=== PATIENT | male | born 1935 | race African-American/Black ===

== ENCOUNTER → 2017-01-06 | Outpatient (CLI) | payer OTHER ==
[~2017-01-06] MED LIST: ASPI-3 PO; CRESTOR10 MG PO; GADOBUTROL 10 MMOL/10 ML VIAL IV ONE; IRBE150T PO; LORA10TA68 PO; MELA3TAB2 PO; METO-269 PO; OMEP20CA9 PO; SAW450CA2 PO; UBID100C26 PO
--- NOTE | 2017-01-06 15:34 | KCIC ---
MRI of the lumbar spine without and with contrast 01/06/2017 CLINICAL HISTORY: Low back pain which radiates down both legs. History of previous lumbar spine surgery in 2004. TECHNIQUE: Unenhanced T1-weighted and T2-weighted sagittal and axial and inversion recovery sagittal images of the lumbar spine were obtained. FINDINGS: Minimal lateral curvature of the lumbar spine is seen convex to the right. Degenerative signal changes are seen involving the L2-3, L3-4, L4-5 and L5-S1 discs. Degenerative signal changes are seen within the marrow surrounding these discs. The conus medullaris is normal in morphology, position, and signal characteristics. Rounded high signal intensity lesions are seen on the T2 weighted images involving the lower pole of the right kidney. These measure 3 to 4 cm in size. They likely represent cysts. At the L1-2 disc space there is a mild generalized disc bulge. Degenerative changes are seen involving the facet joints bilaterally. There is mild to moderate ligamentum flavum hypertrophy bilaterally. Prominence of the posterior epidural fat is seen. These findings when combined result in mild to moderate central spinal canal stenosis. No neural foraminal stenosis is seen. At the L2-3 disc space there is a moderate generalized disc bulge. Degenerative changes are seen involving the facet joints bilaterally. There is moderate ligamentum flavum hypertrophy bilaterally. There is prominence of the posterior epidural fat. These findings when combine result in mild central spinal canal stenosis. Mild to moderate bilateral neural foraminal stenosis is seen. At the L3-4 disc space the patient appears to be post left hemilaminotomy. There is a moderate generalized disc bulge. Degenerative changes are seen involving the facet joints bilaterally. Mild right ligamentum flavum hypertrophy is noted. These findings when combined result in mild central spinal canal stenosis. Mild to moderate left greater than right neural foraminal stenosis is seen. At the L4-5 disc space the patient appears to be status post left hemilaminotomy. There is a mild to moderate generalized disc bulge. Degenerative changes are seen involving the facet joints bilaterally. There is mild right ligamentum flavum hypertrophy. These findings when combine result in mild central spinal canal stenosis. Mild bilateral neural foraminal stenosis is seen. At the L5-S1 disc space there is a minimal generalized disc bulge. Degenerative changes are seen involving the facet joints bilaterally. These findings when combined do not result in significant central spinal canal or neural foraminal stenosis. IMPRESSION: 1. The patient appears to be status post left hemilaminotomy at L3-4 and L4-5. 2. The changes of degenerative disc disease are seen throughout the lumbar spine. These findings result in mild to moderate central spinal canal stenosis at L1-2 and mild central spinal canal stenosis at L2-3, L3-4 and L4-5. Mild to moderate bilateral neural foraminal stenosis is seen at L2-3. Mild to moderate left greater than right neural foraminal stenosis is seen at L3-4. Mild bilateral neural foraminal stenosis is seen at L4-5. Electronically signed by: Tejas Bedoya MD (01/06/2017 3:31 PM)
== END | disposition home or self-care (01) ==
LOC: KCIC MRI 13:00
PROVIDERS: ATTEND Neurological Surgery
DX: M48.06 Spinal stenosis, lumbar region (principal); M51.36 Other intervertebral disc degeneration, lumbar region; Z98.890 Other specified postprocedural states
CPT/HCPCS: 72158; A9585

== ENCOUNTER 2017-11-22 16:32 | Emergency (ER) | payer OTHER ==
[2017-11-22] MEDS: ORPHENADRINE CITRATE 60 MG/2 ML VIAL. IM (16:48)
== END 2017-11-22 17:59 | disposition home or self-care (01) ==
LOC: ER 16:32
DX: S13.4XXA Sprain of ligaments of cervical spine, initial encounter (principal); I10 Essential (primary) hypertension; G89.29 Other chronic pain; E78.00 Pure hypercholesterolemia, unspecified; K21.9 Gastro-esophageal reflux disease without esophagitis; I25.2 Old myocardial infarction; M19.90 Unspecified osteoarthritis, unspecified site; Z88.8 Allergy status to other drugs, medicaments and biological substances; V43.62XA Car passenger injured in collision with other type car in traffic accident, initial encounter; Y93.89 Activity, other specified; Y92.410 Unspecified street and highway as the place of occurrence of the external cause; Y99.8 Other external cause status
CPT/HCPCS: 96372; 99283; J2360

== ENCOUNTER 2020-05-26 12:38 | Emergency (ER) | payer MEDICARE, OTHER ==
[~2020-05-26] VITALS: Ht 167.6 cm; Wt 110.0 kg
[~2020-05-26 12:38] MED LIST changes: +CYCL10TA2 PO; -GADOBUTROL 10 MMOL/10 ML VIAL IV ONE; -MELA3TAB2 PO; +MELA3TAB4 PO; +OMEP20CA16 PO; -OMEP20CA9 PO; -SAW450CA2 PO; +SAW450CA7 PO
--- NOTE | 2020-05-26 12:58 | RAD ---
Examination: PORTABLE CHEST 1V History: Reason: chest pain started this am. / Spl. Instructions: / History: Comparison/Correlation: 08/21/2013 Findings: Portable upright frontal view chest is obtained. Heart size and pulmonary vessels are normal. No infiltrate or pleural effusion. No pneumothorax. Bony structures are unremarkable. Impression: No active disease. Electronically signed by: Vishnu Nagy MD (05/26/2020 12:55 PM) [id number]
[2020-05-26 13:10] LABS: BASO % 1 % (0-3); EOS # 0.1 x10^3/uL (0.0-0.7); EOS % 2 % (0-3); HEMATOCRIT 40.5 % (39.0-53.0); HEMOGLOBIN 13.5 g/dL (13.0-17.5); LYMPH # 1.4 x10^3/uL (1.0-4.8); LYMPH % 28 % (24-48); MEAN CORPUSCULAR HEMOGLOBIN 34 pg (25-35); MEAN CORPUSCULAR HGB CONC 33 g/dL (31-37); MEAN CORPUSCULAR VOLUME 101 fL (79-100); MONO # 0.5 x10^3/uL (0.0-1.1); MONO % 11 % (0-9); NEUT # 2.8 x10^3/uL (1.8-7.7); NEUT % 58 % (31-73); PLATELET COUNT 221 x10^3/uL (140-400); RED BLOOD COUNT 4.02 x10^6/uL (4.30-5.70); RED CELL DISTRIBUTION WIDTH 13.4 % (11.5-14.5); WHITE BLOOD COUNT 4.8 x10^3/uL (4.0-11.0)
[2020-05-26 13:13] LABS: CALCIUM 9.3 mg/dL (8.5-10.1); GFR 86.6; POTASSIUM 3.9 mmol/L (3.5-5.1)
--- NOTE | 2020-05-26 13:14 | PHYS DOC ---
Past Medical History Past Medical History: Arthritis, GERD, High Cholesterol, Hypertension, [place] Past Surgical History: Angioplasty, Other Additional Past Surgical Histo: back surgery 2001 L2,3,4 removed, hernia repair, Smoking Status: Never Smoker Alcohol Use: None Drug Use: None General Adult EDM: Chief Complaint: CHEST PAIN HPI: HPI: Patient is a 84 year old male who presented to ER today for evaluation of subs ternal chest pain started about an hour ago that lasted for 15 minutes. Patient denies any cough or fever, no abdominal pain, no nausea vomiting. Patient also feels dizzy. Patient denies headache. Patient has history of coronary artery disease. He did take 81 mg aspirin this morning. Review of Systems: Review of Systems: Constitutional: Denies fever or chills. [] Eyes: Denies change in visual acuity. [] HENT: Denies nasal congestion or sore throat. [] Respiratory: Denies cough or shortness of breath. [] Cardiovascular: Positive for chest pain, no edema. GI: Denies abdominal pain, nausea, vomiting, bloody stools or diarrhea. [] : Denies dysuria. [] Musculoskeletal: Denies back pain or joint pain. [] Integument: Denies rash. [] Neurologic: Denies headache, focal weakness or sensory changes. [] Endocrine: Denies polyuria or polydipsia. [] Lymphatic: Denies swollen glands. [] Psychiatric: Denies depression or anxiety. [] Heart Score: HEART Score for Chest Pain: HEART Score for Chest Pain Response (Comments) Value History Moderately Suspicious 1 ECG Nonspecific Repolarizatio 1 Age > 65 2 Risk Factors >3 Risk Factors or Hx CAD 2 Troponin < Normal Limit 0 Total 6 Risk Factors: Risk Factors: DM, Current or recent (<one month) smoker, HTN, HLP, family history of CAD, obesity. Risk Scores: Score 0 - 3: 2.5% MACE over next 6 weeks - Discharge Home Score 4 - 6: 20.3% MACE over next 6 weeks - Admit for Clinical Observation Score 7 - 10: 72.7% MACE over next 6 weeks - Early Invasive Strategies Allergies: Allergies: Allergies Coded Allergies Type Severity Reaction Last Updated Verified guaifenesin Allergy 08/21/13 Yes nabumetone Allergy 08/21/13 Yes Physical Exam: PE: Constitutional: Well developed, well nourished, no acute distress, non-toxic appearance. [] HENT: Normocephalic, atraumatic, bilateral external ears normal, oropharynx moist, no oral exudates, nose normal. [] Eyes: PERRLA, EOMI, conjunctiva normal, no discharge. [] Neck: Normal range of motion, no tenderness, supple, no stridor. [] Cardiovascular:Heart rate regular rhythm, no murmur [] Lungs & Thorax: Bilateral breath sounds clear to auscultation [] Abdomen: Bowel sounds normal, soft, no tenderness, no masses, no pulsatile masses. [] Skin: Warm, dry, no erythema, no rash. [] Back: No tenderness, no CVA tenderness. [] Extremities: No tenderness, no cyanosis, no clubbing, ROM intact, no edema. [] Neurologic: Alert and oriented X 3, normal motor function, normal sensory function, no focal deficits noted. [] Psychologic: Affect normal, judgement normal, mood normal. [] Current Patient Data: Vital Signs: Vital Signs Date Time Temp Pulse Resp B/P (MAP) Pulse Ox O2 Delivery O2 Flow Rate FiO2 05/26/20 12:42 97.7 75 18 159/96 (117) 97 Room Air 97.7 EKG: EKG: EKG was done at 1242, heart rate of 85 bpm, sinus rhythm, PVC complex, no ST segment elevation. Radiology/Procedures: Radiology/Procedures: [facility] [address] [place] [address] IMAGING REPORT Signed PATIENT: GURINDER MAHMOODACCOUNT: [id number] : 1935 LOCATION: ER AGE: 84 SEX: M EXAM STATUS: PRE ER ORD. PHYSICIAN: LATASHA CARTER DO REASON: chest pain started this am. PROCEDURE: PORTABLE CHEST 1V Examination: PORTABLE CHEST 1V History: Reason: chest pain started this am. / Spl. Instructions: / History: Comparison/Correlation: 08/21/2013 Findings: Portable upright frontal view chest is obtained. Heart size and pulmonary vessels are normal. No infiltrate or pleural effusion. No pneumothorax. Bony structures are unremarkable. Impression: No active disease. Electronically signed by: Vishnu Mccarty MD (05/26/2020 12:55 PM) [id number] DICTATED and SIGNED BY: VISHNU MCCARTY MD DATE: 05/26/20 7754 Course & Med Decision Making: Course & Med Decision Making Pertinent Labs and Imaging studies reviewed. (See chart for details) Patient EKG and cardiac enzymes did not show any acute problem.. He was no longer have chest pain. Due to his risk factors, this physician recommended that patient is to be admitted to hospital for further evaluation and treatment. Patient was amenable to plan of care. This physician then contacted hospitalist service Dr. Villafana who agreed to admit the patient. Then later patient decided that he did not want to stay in hospital. He signed out against medical advice, his son took him home. Jazlyn Disclaimer: Jazlyn Disclaimer: This electronic medical record was generated, in whole or in part, using a voice recognition dictation system. Departure Departure Impression: Primary Impression: Chest pain Disposition: 07 AMA/ELOPED/LWBS Condition: STABLE Referrals: NATHAN KEBEDE MD (PCP) Additional Instructions: Patient does not wish to proceed with medical care recommended by ( ). Patient given information related to possible complications, up to and including , which could occur as a result of leaving the hospital at this time. Patient verbalizes understanding of risks involved due to leaving against medical advice. Patient has singned AMA form. LATASHA CARTER DO May 26, 2020 13:14
[2020-05-26] MEDS ORDERED: ASPIRIN CHEWABLE 81 MG TABLET. PO ONE (13:15)
[2020-05-26 13:18] LABS: PROTHROMBIN TIME PATIENT 12.8 SEC (11.7-14.0)
[2020-05-26 13:19] LABS: ALBUMIN 3.7 g/dL (3.4-5.0); ALBUMIN/GLOBULIN RATIO 1.1 (1.0-1.7); TOTAL BILIRUBIN 0.2 mg/dL (0.2-1.0); TOTAL PROTEIN 7.2 g/dL (6.4-8.2)
[2020-05-26 14:26] VITALS: BP 187/89
--- NOTE | 2020-05-27 14:07 | EKG ---
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
== END 2020-05-26 14:30 | disposition left against medical advice (07) ==
LOC: ER 12:38
DX: R07.2 Precordial pain (principal); K21.9 Gastro-esophageal reflux disease without esophagitis; E78.00 Pure hypercholesterolemia, unspecified; I10 Essential (primary) hypertension; I25.2 Old myocardial infarction; Z95.5 Presence of coronary angioplasty implant and graft; Z88.8 Allergy status to other drugs, medicaments and biological substances
CPT/HCPCS: 36415; 71045; 80053; 83690; 83735; 83880; 84484; 85025; 85610; 93005; 99285-25

== ENCOUNTER 2020-09-22 07:06 | Emergency (ER) | payer MEDICARE, OTHER ==
[~2020-09-22] VITALS: Ht 175.3 cm; Wt 75.0 kg
[~2020-09-22 07:06] MED LIST changes: +ACET500T68 PO; +ALPR0.5T PO; +ASPI325T8 PO; +METO50TA6 PO; +MULT-445 PO; +POLY17PO29 PO
[2020-09-22 07:07] VITALS: BP 166/74
[2020-09-22 07:57] LABS: BILIRUBIN,URINE SMALL (NEG); CLARITY,URINE TURBID; NITRITE,URINE POSITIVE (NEG); PROTEIN,URINE >=300 mg/dL (NEG-TRACE)
[2020-09-22 08:25] LABS: COLOR,URINE YELLOW
[2020-09-22 08:28] LABS: BACTERIA,URINE MANY /HPF (0-FEW); WBC,URINE TNTC /HPF (0-4)
--- NOTE | 2020-09-22 09:07 | ED.ADGEN ---
Past Medical History Past Medical History: Arthritis, GERD, High Cholesterol, Hypertension, [place] Past Surgical History: Angioplasty, Coronary Bypass Surgery, Other Additional Past Surgical Histo: back surgery 2000 L2,3,4 removed, hernia repair, cabg 06/20 Smoking Status: Never Smoker Alcohol Use: None Drug Use: None General Adult EDM: Chief Complaint: BLOOD IN URINE HPI: HPI: Patient is an 84-year-old male who presents to the emergency room complaining of hematuria. Patient states that he had a double bypass done 3 months ago and a few days after the surgery he started having bladder pain. He went back to the emergency room and at that time it was found that he had a urinary tract infection. He states they told him it was from the catheter. He took antibiotics which seemed to clear it up. At that time he was checked for prostate cancer and bladder issues and had a normal work-up. Today he is concerned about possible prostate cancer again as he has a family history of this. He states that this morning is the first time he has had hematuria. He did not have hematuria the last time he had a UTI. He denies any pain at this time. He is not having any difficulty urinating. He is not on any blood thinners. Review of Systems: Review of Systems: Complete ROS is negative unless otherwise documented in HPI Allergies: Allergies: Allergies Coded Allergies Type Severity Reaction Last Updated Verified clopidogrel Allergy Intermediate Rash 08/08/20 Yes guaifenesin Allergy Unknown 08/03/20 Yes nabumetone Allergy Unknown 08/03/20 Yes Physical Exam: PE: General: Awake, alert, NAD. Well Nourished, well hydrated. Cooperative HEENT: Atraumatic, EOMI, PERRL, airway patent, moist oral mucosa Neck: Supple, trachea midline Respiratory: CTA bilaterally, normal effort, no wheezing/crackles CV: RRR, no murmur, cap refill <2 GI: Soft, nondistended, nontender, no masses MSK: No obvious deformities Skin: Warm, dry, intact Neuro: A&O x3, speech NL, sensory and motor grossly intact, no focal deficits Psych: Normal affect, normal mood, not suicidal or homicidal Current Patient Data: Labs: Laboratory Tests Test 09/22/20 07:17 Urine Collection Type Unknown Urine Color Yellow Urine Clarity Turbid Urine pH 6.0 (<5.0-8.0) Urine Specific [place] 1.020 (1.000-1.030) Urine Protein >=300 mg/dL (NEG-TRACE) Urine Glucose (UA) Negative mg/dL (NEG) Urine Ketones (Stick) Trace mg/dL (NEG) Urine Blood Large (NEG) Urine Nitrite Positive (NEG) Urine Bilirubin Small (NEG) Urine Urobilinogen Dipstick 1.0 mg/dL (0.2 mg/dL) Urine Leukocyte Esterase Large (NEG) Urine RBC 6-10 /HPF (0-2) Urine WBC Tntc /HPF (0-4) Urine Squamous Epithelial Cells Occ /LPF Urine Bacteria Many /HPF (0-FEW) Urine Mucus Mod /LPF Vital Signs: Vital Signs Date Time Temp Pulse Resp B/P (MAP) Pulse Ox O2 Delivery O2 Flow Rate FiO2 09/22/20 07:07 98.1 112 18 166/74 (104) 99 Room Air 98.1 EKG: EKG: [] Heart Score: C/O Chest Pain: N/A Risk Factors: Risk Factors: DM, Current or recent (<one month) smoker, HTN, HLP, family history of CAD, obesity. Risk Scores: Score 0 - 3: 2.5% MACE over next 6 weeks - Discharge Home Score 4 - 6: 20.3% MACE over next 6 weeks - Admit for Clinical Observation Score 7 - 10: 72.7% MACE over next 6 weeks - Early Invasive Strategies Radiology/Procedures: Radiology/Procedures: [] Course & Med Decision Making: Course & Med Decision Making Pertinent Labs and Imaging studies reviewed. (See chart for details) Patient is an 84-year-old male who presents to the emergency room with hematuria. A UA was sent and patient does appear to have a urinary tract infection with nitrite positive's making it most likely to be E. coli. Given that he is a male and he has had a recent infection we will place him on antibiotics for 14 days. Patient does not appear to be septic. Will refer him to urology as he can has concerns about his prostate and he has had 2 bladder infections in the last 3 months. Patient's test results and vitals while in the ED were fully reviewed and discussed with the patient. Patient is stable and at this time does not need admission to the hospital. We have discussed strict return precautions and the importance of following up with their Primary Care Physician. Patient stated understanding and was given an opportunity to ask any questions. Patient is in agreement with plan. Dragon Disclaimer: Dragon Disclaimer: This electronic medical record was generated, in whole or in part, using a voice recognition dictation system. Departure Departure Impression: Primary Impression: Urinary tract infection Disposition: 01 DC HOME SELF CARE/HOMELESS Condition: STABLE Referrals: NATHAN KEBEDE MD (PCP) Patient Instructions: Urinary Tract Infection Additional Instructions: Urology César Mcgee Scripts Cephalexin (CEPHALEXIN) 500 Mg Capsule 1 CAP PO BID for 14 Days, #28 CAP Prov: LENORE CHAVARRIA MD 09/22/20 LENORE CHAVARRIA MD Sep 22, 2020 09:07
[2020-09-22] MEDS ORDERED: CEPH500C PO (09:11)
== END 2020-09-22 09:18 | disposition home or self-care (01) ==
LOC: ER 07:06
DX: N39.0 Urinary tract infection, site not specified (principal); R31.9 Hematuria, unspecified; M19.90 Unspecified osteoarthritis, unspecified site; K21.9 Gastro-esophageal reflux disease without esophagitis; E78.00 Pure hypercholesterolemia, unspecified; I10 Essential (primary) hypertension; I25.2 Old myocardial infarction; Z90.89 Acquired absence of other organs; Z98.890 Other specified postprocedural states; Z88.8 Allergy status to other drugs, medicaments and biological substances
CPT/HCPCS: 81001; 99283

== ENCOUNTER 2020-11-26 05:56 | Emergency (ER) | payer MEDICARE, OTHER ==
[~2020-11-26] VITALS: Ht 172.7 cm; Wt 69.5 kg
[~2020-11-26 05:56] MED LIST changes: +CEPH500C PO
[2020-11-26 06:23] VITALS: BP 197/98
[2020-11-26 07:24] LABS: BILIRUBIN,URINE NEGATIVE (NEG); CLARITY,URINE CLEAR; COLOR,URINE YELLOW; NITRITE,URINE NEGATIVE (NEG); PROTEIN,URINE NEGATIVE (NEG-TRACE); UROBILINOGEN,URINE 0.2 mg/dL (0.2 mg/dL)
[2020-11-26 07:35] LABS: BACTERIA,URINE 0 /HPF (0-FEW); RBC,URINE OCC /HPF (0-2); WBC,URINE 0 /HPF (0-4)
--- NOTE | 2020-11-26 08:19 | PHYS DOC ---
Past Medical History Past Medical History: Arthritis, GERD, High Cholesterol, Hypertension, [place], Other Additional Past Medical Histor: BPH Past Surgical History: Angioplasty, Coronary Bypass Surgery, Other Additional Past Surgical Histo: back surgery 2000 L2,3,4 removed, hernia repair , cabg 06/20 Smoking Status: Never Smoker Alcohol Use: None Drug Use: None General Adult EDM: Chief Complaint: URINARY RETENTION HPI: HPI: Patient is a 84 year old male who presented to ER due to not able to urinate since 1 AM this morning. Patient had denies any chest pain, no abdominal pain, no nausea vomiting. Patient denies any fever, no back pain. Patient denies any bowel incontinence. Patient said he has a lot of pressure in his bladder. Review of Systems: Review of Systems: Constitutional: Denies fever or chills. [] Eyes: Denies change in visual acuity. [] HENT: Denies nasal congestion or sore throat. [] Respiratory: Denies cough or shortness of breath. [] Cardiovascular: Denies chest pain or edema. [] GI: Denies abdominal pain, nausea, vomiting, bloody stools or diarrhea. [] : Denies dysuria. Positive for not able to urinate since 1 AM this morning. Musculoskeletal: Denies back pain or joint pain. [] Integument: Denies rash. [] Neurologic: Denies headache, focal weakness or sensory changes. [] Endocrine: Denies polyuria or polydipsia. [] Lymphatic: Denies swollen glands. [] Psychiatric: Denies depression or anxiety. [] Heart Score: C/O Chest Pain: N/A Risk Factors: Risk Factors: DM, Current or recent (<one month) smoker, HTN, HLP, family history of CAD, obesity. Risk Scores: Score 0 - 3: 2.5% MACE over next 6 weeks - Discharge Home Score 4 - 6: 20.3% MACE over next 6 weeks - Admit for Clinical Observation Score 7 - 10: 72.7% MACE over next 6 weeks - Early Invasive Strategies Allergies: Allergies: Allergies Coded Allergies Type Severity Reaction Last Updated Verified FRANCISCO Inhibitors Allergy Intermediate 11/26/20 Yes atorvastatin Allergy Intermediate GI BLEED 11/26/20 Yes clopidogrel Allergy Intermediate Rash 08/08/20 Yes fenofibrate Allergy Intermediate RASH 11/26/20 Yes guaifenesin Allergy Intermediate 11/26/20 Yes nabumetone Allergy Intermediate 11/26/20 Yes pravastatin Allergy Intermediate RASH 11/26/20 Yes ticagrelor Allergy Intermediate 11/26/20 Yes Physical Exam: PE: Constitutional: Well developed, well nourished, no acute distress, non-toxic appearance. [] HENT: Normocephalic, atraumatic, bilateral external ears normal, oropharynx moist, no oral exudates, nose normal. [] Eyes: PERRLA, EOMI, conjunctiva normal, no discharge. [] Neck: Normal range of motion, no tenderness, supple, no stridor. [] Cardiovascular:Heart rate regular rhythm, no murmur [] Lungs & Thorax: Bilateral breath sounds clear to auscultation [] Abdomen: Bowel sounds normal, soft, There is suprabupic tenderness to palpation, no masses, no pulsatile masses. [] Skin: Warm, dry, no erythema, no rash. [] Back: No tenderness, no CVA tenderness. [] Extremities: No tenderness, no cyanosis, no clubbing, ROM intact, no edema. [] Neurologic: Alert and oriented X 3, normal motor function, normal sensory function, no focal deficits noted. [] Psychologic: Affect normal, judgement normal, mood normal. [] Current Patient Data: Labs: Laboratory Tests Test 11/26/20 06:38 Urine Collection Type U cath Urine Color Yellow Urine Clarity Clear Urine pH 7.0 (<5.0-8.0) Urine Specific [place] 1.010 (1.000-1.030) Urine Protein Negative mg/dL (NEG-TRACE) Urine Glucose (UA) Negative mg/dL (NEG) Urine Ketones (Stick) Negative mg/dL (NEG) Urine Blood Negative (NEG) Urine Nitrite Negative (NEG) Urine Bilirubin Negative (NEG) Urine Urobilinogen Dipstick 0.2 mg/dL (0.2 mg/dL) Urine Leukocyte Esterase Negative (NEG) Urine RBC Occ /HPF (0-2) Urine WBC 0 /HPF (0-4) Urine Squamous Epithelial Cells Occ /LPF Urine Bacteria 0 /HPF (0-FEW) Vital Signs: Vital Signs Date Time Temp Pulse Resp B/P (MAP) Pulse Ox O2 Delivery O2 Flow Rate FiO2 11/26/20 06:23 96.8 98 28 197/98 (131) 100 Room Air 96.8 EKG: EKG: [] Radiology/Procedures: Radiology/Procedures: [] Course & Med Decision Making: Course & Med Decision Making Pertinent Labs and Imaging studies reviewed. (See chart for details) Patient is an 84-year-old male who presented to ER due to acute urinary retention. A Jo catheter was placed, there was 700 cc of urine collected. Patient felt much better. Patient has a urologist already, Dr. Montez. He Will be discharged home with a leg bag catheter. He will need to follow-up with his urologist this week for reevaluation. Patient is amenable to plan of care. Dragon Disclaimer: Dragon Disclaimer: This electronic medical record was generated, in whole or in part, using a voice recognition dictation system. Departure Departure Impression: Primary Impression: Acute urinary retention Disposition: 01 HOME / SELF CARE / HOMELESS Condition: IMPROVED Referrals: NATHAN KEBEDE MD (PCP) Please call your urologist for follow up this week or PLEASE CALL [facility] UROLOGY DEPARTMENT FOR FOLLOW UP THIS WEEK. The phone number is [phone] Patient Instructions: Urinary Retention, Acute, Male Additional Instructions: Thank you for visiting our Emergency Department. We appreciate you trusting us with your care. If any additional problems come up don't hesitate to return to visit us. Please follow up with your primary care provider so they can plan additional care if needed and know about the problem that you had. If symptoms worsen come back to the Emergency Department. Any concerning symptoms that start such as chest pain, shortness of air, weakness or numbness on one side of the body, running high fevers or any other concerning symptoms return to the ER. LATASHA CARTER DO November 26, 2020 08:19
== END 2020-11-26 09:35 | disposition home or self-care (01) ==
LOC: ER 05:56
DX: N40.1 Benign prostatic hyperplasia with lower urinary tract symptoms (principal); R33.8 Other retention of urine; K21.9 Gastro-esophageal reflux disease without esophagitis; E78.00 Pure hypercholesterolemia, unspecified; I10 Essential (primary) hypertension; I25.2 Old myocardial infarction; Z95.1 Presence of aortocoronary bypass graft; Z95.5 Presence of coronary angioplasty implant and graft; Z98.890 Other specified postprocedural states; Z88.8 Allergy status to other drugs, medicaments and biological substances
CPT/HCPCS: 51701; 81001; 99284

== ENCOUNTER 2020-11-27 21:07 | Emergency (ER) | payer MEDICARE ==
[~2020-11-27] VITALS: Ht 172.7 cm; Wt 69.5 kg
--- NOTE | 2020-11-27 21:28 | PHYS DOC ---
Past Medical History Past Medical History: Arthritis, GERD, High Cholesterol, Hypertension, [place], Other Additional Past Medical Histor: BPH Past Surgical History: Angioplasty, Coronary Bypass Surgery, Other Additional Past Surgical Histo: back surgery 2000 L2,3,4 removed, hernia repair , cabg 06/20 Smoking Status: Never Smoker Alcohol Use: None Drug Use: None General Adult EDM: Chief Complaint: URINE CATHETER PROBLEM HPI: HPI: Patient is a 85-year-old male presenting for catheter problems. Was seen here at our facility yesterday for urinary retention, no acute disease but Jo catheter was placed with greater than 1 L urine output which significantly relieved his symptoms. He was advised to keep Jo catheter in place and have close follow-up with outpatient urologist that he is previously established with for continued management. Nonetheless, patient reports intermittent suprapubic pain since ER departure yesterday. Reports at times urine drains without him having to initiate or bear down. He reports at times when he feels like he has to urinate, when trying to bear down and expel urine he reports suprapubic pain and spasms. Reports he has had steady urinary output with no concern for obstruction, he has not had urine leaking around Jo catheter, no fever, no ot her concerning signs or symptoms of infectious disease. He contacted his primary physician and urologist today and is pending outpatient follow-up within upcoming 7 days Review of Systems: Review of Systems: Fourteen body systems of review of systems have been reviewed. See HPI for pertinent positives and negative responses, other decker all other systems are negative, non-pertinent or non-contributory Heart Score: C/O Chest Pain: No Risk Factors: Risk Factors: DM, Current or recent (<one month) smoker, HTN, HLP, family history of CAD, obesity. Risk Scores: Score 0 - 3: 2.5% MACE over next 6 weeks - Discharge Home Score 4 - 6: 20.3% MACE over next 6 weeks - Admit for Clinical Observation Score 7 - 10: 72.7% MACE over next 6 weeks - Early Invasive Strategies Allergies: Allergies: Allergies Coded Allergies Type Severity Reaction Last Updated Verified FRANCISCO Inhibitors Allergy Intermediate 11/26/20 Yes atorvastatin Allergy Intermediate GI BLEED 11/26/20 Yes clopidogrel Allergy Intermediate Rash 08/08/20 Yes fenofibrate Allergy Intermediate RASH 11/26/20 Yes guaifenesin Allergy Intermediate 11/26/20 Yes nabumetone Allergy Intermediate 11/26/20 Yes pravastatin Allergy Intermediate RASH 11/26/20 Yes ticagrelor Allergy Intermediate 11/26/20 Yes Physical Exam: PE: Constitutional: Well developed, well nourished, no acute distress, non-toxic appearance. HENT: Normocephalic, atraumatic, bilateral external ears normal, oropharynx moist, no oral exudates, nose normal. Eyes: PERRLA, EOMI, conjunctiva normal, no discharge. Neck: Normal range of motion, no tenderness, supple, no stridor. Cardiovascular: Heart rate regular, sinus rhythm, no murmurs rubs or gallops Lungs & Thorax: Bilateral breath sounds clear to auscultation Abdomen: Bowel sounds normal, soft, no tenderness, no masses, no pulsatile masses. Nonsurgical abdomen, no peritoneal signs : Testicles bilaterally descended and unremarkable with no tenderness or palpable abnormalities on exam, penis uncircumcised with Jo catheter in appropriate position and strapped to leg without concern for dislodgment/trauma/malalignment/misplacement etc. Bladder scan performed with 17 mls urine present in bladder Skin: Warm, dry, no erythema, no rash. Back: No tenderness, no CVA tenderness. Extremities: No tenderness, no cyanosis, no clubbing, ROM intact, no edema. Neurologic: Alert and oriented X 3, grossly normal motor & sensory function, no focal deficits noted. Psychologic: Affect normal, judgement normal, mood normal. EKG: EKG: [] Radiology/Procedures: Radiology/Procedures: [] Course & Med Decision Making: Course & Med Decision Making Vital signs stable, HPI and physical exam nonconcerning for any emergent or surgical issues. Patient has well-appearing and well-placed Jo catheter that is draining adequately without residual/retention or concern for infection I reviewed ER visit with patient and family member at bedside. Patient asymptomatic at present on evaluation. He has outpatient follow-up scheduled with primary care physician and urologist which I feel is appropriate. Joint decision to defer any further diagnostic work-up in ER setting Patient has good access to outpatient care. Reports he will call them first thing in the morning when they open to review subsequent ER visit this evening. Patient and family member educated extensively on strict return precautions that should prompt immediate medical return for evaluation. Jazlyn Disclaimer: Jazlyn Disclaimer: This electronic medical record was generated, in whole or in part, using a voice recognition dictation system. Departure Departure Impression: Primary Impression: Painful bladder spasm Disposition: HOME / SELF CARE / HOMELESS Condition: STABLE Referrals: NATHAN KEBEDE MD (PCP) Patient Instructions: Jo Catheter Care, Adult Additional Instructions: As discussed, your vital signs, physical examination and review of Jo catheter placement and bladder function was all grossly unremarkable. I reviewed work-up performed yesterday our facility that was nonconcerning for any acute infection. I discussed little utility in further diagnostic work-up in ER setting. At present, there is no concerning signs or symptoms that indicate active disease. I believe you are still getting used to foreign body that is Jo catheter being placed. As recommended, I advise you ensure close outpatient follow-up with your primary care physician and urologist as previously scheduled today. It would be best if you can be seen within upcoming 7 days time for ER visit review and needs for next step in care. If any concerning signs or symptoms present prior to outpatient follow-up please do not hesitate to come back for repeat evaluation. It was a pleasure to take care of you and I wish you the best going forward RICKY GAMBOA DO November 27, 2020 21:28
[2020-11-27 22:20] VITALS: BP 137/62
== END 2020-11-27 22:25 | disposition home or self-care (01) ==
LOC: ER 21:07
DX: N32.89 Other specified disorders of bladder (principal); R33.9 Retention of urine, unspecified; R10.30 Lower abdominal pain, unspecified; M19.90 Unspecified osteoarthritis, unspecified site; K21.9 Gastro-esophageal reflux disease without esophagitis; E78.00 Pure hypercholesterolemia, unspecified; I10 Essential (primary) hypertension; I25.2 Old myocardial infarction; Z95.1 Presence of aortocoronary bypass graft; Z98.61 Coronary angioplasty status; Z88.8 Allergy status to other drugs, medicaments and biological substances
CPT/HCPCS: 99284

== ENCOUNTER 2020-12-02 09:01 | Emergency (ER) | payer MEDICARE ==
[~2020-12-02] VITALS: Ht 165.1 cm; Wt 68.0 kg
[2020-12-02 09:57] LABS: BILIRUBIN,URINE NEGATIVE (NEG); CLARITY,URINE CLOUDY; COLOR,URINE YELLOW; NITRITE,URINE POSITIVE (NEG); PH,URINE 6.5 (<5.0-8.0); PROTEIN,URINE NEGATIVE (NEG-TRACE); UROBILINOGEN,URINE 0.2 mg/dL (0.2 mg/dL)
[2020-12-02 10:09] LABS: BACTERIA,URINE MANY /HPF (0-FEW); WBC,URINE >40 /HPF (0-4)
--- NOTE | 2020-12-02 10:49 | ED.ADGEN ---
Past Medical History Past Medical History: Arthritis, GERD, High Cholesterol, Hypertension, [place], Other Additional Past Medical Histor: BPH, URINARY RETENTION Past Surgical History: Angioplasty, Coronary Bypass Surgery, Other Additional Past Surgical Histo: back surgery 2000 L2,3,4 removed, hernia repair, cabg 06/20 Smoking Status: Never Smoker Alcohol Use: None Drug Use: None General Adult EDM: Chief Complaint: URINE CATHETER PROBLEM HPI: HPI: Patient is an 85-year-old male who presents to the emergency room complaining of bladder pressure and difficulty with his urinary catheter. He had a catheter placed here in the emergency room about a week ago due to urinary retention. He states that he was not have any problems until last night. He states he has had some drainage around the catheter. He is also having this bladder pressure. He denies any fever, chills, sweats, nausea, vomiting. He is requesting an EKG as he had chest pain several days ago which is now resolved. He also fell out of bed and hit his head hard on the floor about 7 days prior to arrival. He continues to have headaches. He denies any numbness or weakness. He denies any difficulty with gait. He denies any confusion. He states the headaches are dull and on the right side of the head where he hit his head. Review of Systems: Review of Systems: Complete ROS is negative unless otherwise documented in HPI Allergies: Allergies: Allergies Coded Allergies Type Severity Reaction Last Updated Verified FRANCISCO Inhibitors Allergy Intermediate 11/26/20 Yes atorvastatin Allergy Intermediate GI BLEED 11/26/20 Yes clopidogrel Allergy Intermediate Rash 08/08/20 Yes fenofibrate Allergy Intermediate RASH 11/26/20 Yes guaifenesin Allergy Intermediate 11/26/20 Yes nabumetone Allergy Intermediate 11/26/20 Yes pravastatin Allergy Intermediate RASH 11/26/20 Yes ticagrelor Allergy Intermediate 11/26/20 Yes Physical Exam: PE: General: Awake, alert, NAD. Well Nourished, well hydrated. Cooperative HEENT: Small hematoma to the right moravian, EOMI, PERRL, airway patent, moist oral mucosa Neck: Supple, trachea midline Respiratory: CTA bilaterally, normal effort, no wheezing/crackles CV: RRR, no murmur, cap refill <2 GI: Soft, nondistended, nontender, no masses MSK: No obvious deformities Skin: Warm, dry, intact Neuro: A&O x3, speech NL, sensory and motor grossly intact, no focal deficits Psych: Normal affect, normal mood, not suicidal or homicidal Current Patient Data: Labs: Laboratory Tests Test 12/02/20 09:40 Urine Collection Type Unknown Urine Color Yellow Urine Clarity Cloudy Urine pH 6.5 (<5.0-8.0) Urine Specific [place] 1.010 (1.000-1.030) Urine Protein Negative mg/dL (NEG-TRACE) Urine Glucose (UA) Negative mg/dL (NEG) Urine Ketones (Stick) Negative mg/dL (NEG) Urine Blood Large (NEG) Urine Nitrite Positive (NEG) Urine Bilirubin Negative (NEG) Urine Urobilinogen Dipstick 0.2 mg/dL (0.2 mg/dL) Urine Leukocyte Esterase Large (NEG) Urine RBC 11-20 /HPF (0-2) Urine WBC >40 /HPF (0-4) Urine Squamous Epithelial Cells Few /LPF Urine Bacteria Many /HPF (0-FEW) Urine Mucus Slight /LPF Vital Signs: Vital Signs Date Time Temp Pulse Resp B/P (MAP) Pulse Ox O2 Delivery O2 Flow Rate FiO2 12/02/20 09:15 98.2 78 18 149/70 (96) 98 Room Air 98.2 EKG: EKG: [] Heart Score: C/O Chest Pain: N/A Risk Factors: Risk Factors: DM, Current or recent (<one month) smoker, HTN, HLP, family history of CAD, obesity. Risk Scores: Score 0 - 3: 2.5% MACE over next 6 weeks - Discharge Home Score 4 - 6: 20.3% MACE over next 6 weeks - Admit for Clinical Observation Score 7 - 10: 72.7% MACE over next 6 weeks - Early Invasive Strategies Radiology/Procedures: Radiology/Procedures: [] Course & Med Decision Making: Course & Med Decision Making Pertinent Labs and Imaging studies reviewed. (See chart for details) Patient 85-year-old male who presents to the emergency room with bladder pain, Jo issues, headache. For patient's closed head injury as CT will be done to rule out a subacute bleed. Patient is neurologically intact. He does have a small hematoma to the right side of his head. Jo was replaced with good output. UA shows UTI. This is likely the cause of his bladder pain and clogged Jo. He has a follow-up appointment with his primary care doctor in 3 days and a urology appointment on Thursday. He will be placed on antibiotics. Patient would like to go home. Patient's test results and vitals while in the ED were fully reviewed and discussed with the patient. Patient is stable and at this time does not need admission to the hospital. We have discussed strict return precautions and the importance of following up with their Primary Care Phys ician. Patient stated understanding and was given an opportunity to ask any questions. Patient is in agreement with plan. Dragon Disclaimer: Dragon Disclaimer: This electronic medical record was generated, in whole or in part, using a voice recognition dictation system. Departure Departure Impression: Primary Impression: UTI (urinary tract infection) Additional Impressions: Jo catheter problem Closed head injury Disposition: HOME / SELF CARE / HOMELESS Condition: STABLE Referrals: NATHAN KEBEDE MD (PCP) Patient Instructions: Jo Catheter Care, Adult, Urinary Tract Infection Scripts Cephalexin (CEPHALEXIN) 500 Mg Capsule 1 CAP PO BID for 10 Days, #20 CAP Prov: LENORE CHAVARRIA MD 12/02/20 Problem Qualifiers LENORE CHAVARRIA MD December 02, 2020 10:49
[2020-12-02] MEDS ORDERED: CEPH500C PO (11:03)
--- NOTE | 2020-12-02 11:41 | RAD ---
PQRS Compliance Statement: One or more of the following individualized dose reduction techniques were utilized for this examinat ion: 1. Automated exposure control 2. Adjustment of the mA and/or kV according to patient size 3. Use of iterative reconstruction technique CT HEAD WITHOUT CONTRAST History: Reason: chi 4 days ago / Comparison: None. Technique: Axial images are obtained of the head from the skull base through the vertex without IV co ntrast. Findings: No mass-effect, midline shift, extra-axial fluid collection, hemorrhage, or obvious acute infarction is identified. Basilar cisterns are patent. The ventricles and sulci are prominent, consistent with age-related cerebral atrophy. There is mild p eriventricular white matter hypoattenuation. This is a nonspecific finding but is commonly due to ch ronic small vessel ischemic disease. Bone windows demonstrate no acute calvarial abnormality. The visualized paranasal sinuses are clear. Mastoid air cells are well aerated. IMPRESSION: 1. No acute intracranial abnormality. 2. Age-related cerebral atrophy and mild periventricular white matter changes probably due to chroni c small vessel ischemic disease. Electronically signed by: Juanito Rowe MD (12/02/2020 11:39 AM) [id number]
[2020-12-02 11:58] VITALS: BP 170/77
[2020-12-02] MEDS ORDERED: LEVO500T8 PO (12:31)
--- NOTE | 2020-12-02 19:38 | EKG ---
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
== END 2020-12-02 12:42 | disposition home or self-care (01) ==
LOC: ER 09:01
DX: S09.90XA Unspecified injury of head, initial encounter (principal); N39.0 Urinary tract infection, site not specified; N40.1 Benign prostatic hyperplasia with lower urinary tract symptoms; R33.8 Other retention of urine; K21.9 Gastro-esophageal reflux disease without esophagitis; E78.00 Pure hypercholesterolemia, unspecified; I10 Essential (primary) hypertension; I25.2 Old myocardial infarction; Z95.5 Presence of coronary angioplasty implant and graft; Z95.1 Presence of aortocoronary bypass graft; Z88.8 Allergy status to other drugs, medicaments and biological substances; W06.XXXA Fall from bed, initial encounter; Y93.89 Activity, other specified; Y92.89 Other specified places as the place of occurrence of the external cause; Y99.8 Other external cause status
CPT/HCPCS: 70450; 81001; 93005; 99285-25

== ENCOUNTER 2020-12-02 16:18 | Emergency (ER) | payer MEDICARE ==
[~2020-12-02] VITALS: Ht 172.7 cm; Wt 68.1 kg
[~2020-12-02 16:18] MED LIST changes: +LEVO500T8 PO
--- NOTE | 2020-12-02 17:42 | PHYS DOC ---
Past Medical History Past Medical History: Arthritis, GERD, High Cholesterol, Hypertension, [place], Other Additional Past Medical Histor: BPH, URINARY RETENTION Past Surgical History: Angioplasty, Coronary Bypass Surgery, Other Additional Past Surgical Histo: back surgery 2000 L2,3,4 removed, hernia repair, cabg 06/20 Smoking Status: Never Smoker Alcohol Use: None Drug Use: None General Adult EDM: Chief Complaint: BLOOD IN URINE HPI: HPI: Patient is a 85 year old male who presents with was here this morning with a very tract infection and needing a catheter placed for urinary retention. A leg bag catheter was placed and patient has an appointment in 2 days with urology. Patient is back this afternoon due to stating he does not think the bag is draining properly. Patient denies any other discomfort. Review of Systems: Review of Systems: Constitutional: Denies fever or chills. [] Eyes: Denies change in visual acuity. [] HENT: Denies nasal congestion or sore throat. [] Respiratory: Denies cough or shortness of breath. [] Cardiovascular: Denies chest pain or edema. [] GI: Denies abdominal pain, nausea, vomiting, bloody stools or diarrhea. [] : Denies dysuria. + Urinary bag drainage problem [] Musculoskeletal: Denies back pain or joint pain. [] Integument: Denies rash. [] Neurologic: Denies headache, focal weakness or sensory changes. [] Endocrine: Denies polyuria or polydipsia. [] Lymphatic: Denies swollen glands. [] Psychiatric: Denies depression or anxiety. [] Heart Score: C/O Chest Pain: No Risk Factors: Risk Factors: DM, Current or recent (<one month) smoker, HTN, HLP, family history of CAD, obesity. Risk Scores: Score 0 - 3: 2.5% MACE over next 6 weeks - Discharge Home Score 4 - 6: 20.3% MACE over next 6 weeks - Admit for Clinical Observation Score 7 - 10: 72.7% MACE over next 6 weeks - Early Invasive Strategies Allergies: Allergies: Allergies Coded Allergies Type Severity Reaction Last Updated Verified FRANCISCO Inhibitors Allergy Intermediate 11/26/20 Yes atorvastatin Allergy Intermediate GI BLEED 11/26/20 Yes clopidogrel Allergy Intermediate Rash 08/08/20 Yes fenofibrate Allergy Intermediate RASH 11/26/20 Yes guaifenesin Allergy Intermediate 11/26/20 Yes nabumetone Allergy Intermediate 11/26/20 Yes pravastatin Allergy Intermediate RASH 11/26/20 Yes ticagrelor Allergy Intermediate 11/26/20 Yes Physical Exam: PE: Constitutional: Well developed, well nourished, no acute distress, non-toxic appearance. [] HENT: Normocephalic, atraumatic, bilateral external ears normal, oropharynx moist, no oral exudates, nose normal. [] Eyes: PERRLA, EOMI, conjunctiva normal, no discharge. [] Neck: Normal range of motion, no tenderness, supple, no stridor. [] Cardiovascular:Heart rate regular rhythm, no murmur [] Lungs & Thorax: Bilateral breath sounds clear to auscultation [] Abdomen: Bowel sounds normal, soft, no tenderness, no masses, no pulsatile masses. [] Skin: Warm, dry, no erythema, no rash. [] Back: No tenderness, no CVA tenderness. [] Extremities: No tenderness, no cyanosis, no clubbing, ROM intact, no edema. [] Neurologic: Alert and oriented X 3, normal motor function, normal sensory function, no focal deficits noted. [] Psychologic: Affect normal, judgement normal, mood normal. Normal physical exam [] Current Patient Data: Vital Signs: Vital Signs Date Time Temp Pulse Resp B/P (MAP) Pulse Ox O2 Delivery O2 Flow Rate FiO2 12/02/20 17:00 98.7 71 16 145/67 (93) 99 Room Air 98.7 EKG: EKG: [] Radiology/Procedures: Radiology/Procedures: [] Course & Med Decision Making: Course & Med Decision Making Pertinent Labs and Imaging studies reviewed. (See chart for details) See HPI. Alert and oriented x4. Ambulatory with a steady gait. Urinary catheter is flushed 2 different times and it is draining very well. Patient does have urine that is draining into the tube down into the bag. Seems that the bag is not opening for the urine to go into. Urinary catheter bag is chelsie nged and now working. Patient is discharged home. [] Dragon Disclaimer: Jazlyn Disclaimer: This electronic medical record was generated, in whole or in part, using a voice recognition dictation system. Departure Departure Impression: Primary Impression: Urinary catheter dysfunction Qualified Codes: T83.018A - Breakdown (mechanical) of other urinary catheter, initial encounter Disposition: HOME / SELF CARE / HOMELESS Condition: STABLE Referrals: NATHAN KEBEDE MD (PCP) Patient Instructions: Indwelling Urinary Catheter Care-Brief Additional Instructions: Follow-up with your urologist as scheduled. Drink plenty of fluids. Continue taking all medications as they are prescribed. MIGUEL A BARRAZA [employer] PORTAL DEVELOPER December 02, 2020 17:42
[2020-12-02 17:49] VITALS: BP 167/74
== END 2020-12-02 17:58 | disposition home or self-care (01) ==
LOC: ER 16:18
DX: T83.018A Breakdown (mechanical) of other urinary catheter, initial encounter (principal); M19.90 Unspecified osteoarthritis, unspecified site; K21.9 Gastro-esophageal reflux disease without esophagitis; E78.00 Pure hypercholesterolemia, unspecified; I10 Essential (primary) hypertension; I25.2 Old myocardial infarction; Z95.1 Presence of aortocoronary bypass graft; Z98.61 Coronary angioplasty status; Z88.8 Allergy status to other drugs, medicaments and biological substances
CPT/HCPCS: 99281

== ENCOUNTER 2021-05-31 16:37 | Inpatient (IN) | payer MEDICARE, OTHER ==
[~2021-05-31] VITALS: Ht 175.3 cm; Wt 71.1 kg
[~2021-05-31 16:37] MED LIST changes: +ASPI-886 PO; +CHOL5000 PO; +CITA20TA6 PO; +CYCL10TA19 PO; -CYCL10TA2 PO; +DICL150D9 TP; +DUTA0.5C PO; +FLUT9.9S NS; +LATA7.5D OU; -LEVO500T8 PO; +LEVO500T9 PO; +PANT40TA77 PO; +PEG15DRO4 EACHEYE; +ROSU40TA22 PO; +SENN1TAB99 PO; +SIME80TA14 PO; +TAMS0.4C97 PO
[2021-05-31] MEDS ORDERED: ONDANSETRON PF 4 MG/2 ML VIAL. IVP ONE ×2 (17:00→18:45)
[2021-05-31] MEDS ORDERED: MORPHINE SULFATE 10 MG/ML VIAL. IVP ONE (17:00)
[2021-05-31 17:39] LABS: BASO % 0 % (0-3); EOS % 0 % (0-3); HEMATOCRIT 42.5 % (39.0-53.0); HEMOGLOBIN 14.3 g/dL (13.0-17.5); LYMPH # 0.3 x10^3/uL (1.0-4.8); LYMPH % 3 % (24-48); MEAN CORPUSCULAR HEMOGLOBIN 34 pg (25-35); MEAN CORPUSCULAR HGB CONC 34 g/dL (31-37); MEAN CORPUSCULAR VOLUME 101 fL (79-100); MONO # 0.2 x10^3/uL (0.0-1.1); MONO % 2 % (0-9); NEUT # 11.1 x10^3/uL (1.8-7.7); NEUT % 95 % (31-73); PLATELET COUNT 278 x10^3/uL (140-400); RED BLOOD COUNT 4.22 x10^6/uL (4.30-5.70); RED CELL DISTRIBUTION WIDTH 14.9 % (11.5-14.5); WHITE BLOOD COUNT 11.7 x10^3/uL (4.0-11.0)
[2021-05-31] MEDS ORDERED: IOHEXOL 300 MG/ML 100ML VIAL. IV ONE (17:45)
[2021-05-31] MEDS ORDERED: CONTRAST GIVEN. MC PRN (17:45)
[2021-05-31 17:50] LABS: CALCIUM 9.8 mg/dL (8.5-10.1); CREATININE 1.2 mg/dL (0.7-1.3); POTASSIUM 4.5 mmol/L (3.5-5.1)
[2021-05-31 17:57] LABS: ALBUMIN 4.4 g/dL (3.4-5.0); ALBUMIN/GLOBULIN RATIO 1.3 (1.0-1.7); TOTAL BILIRUBIN 0.5 mg/dL (0.2-1.0); TOTAL PROTEIN 7.9 g/dL (6.4-8.2)
--- NOTE | 2021-05-31 18:02 | PHYS DOC ---
Past Medical History Past Medical History: Arthritis, GERD, High Cholesterol, Hypertension, [place], Other Additional Past Medical Histor: BPH, URINARY RETENTION (LOLY REYNOLDS MD) Past Surgical History: Other Additional Past Surgical Histo: CABG (LOLY REYNOLDS MD) Smoking Status: Former Smoker Alcohol Use: None Drug Use: None (LOLY REYNOLDS MD) General Adult EDM: Chief Complaint: ABDOMINAL PAIN HPI: HPI: Patient is a 85 year old male with history of CAD, HTN, HLD, GERD, previous bowel obstruction in September 2020 who presents with worsening abdominal pain. Patient has had intermittent abdominal pain since his CABG in June 2020. He has had extensive work-up including EGD, colonoscopy, GI, and surgery consult ations. He did appear to have a small bowel obstruction in November of this year of unclear etiology, he is he does not have any history of hernia or previous abdominal surgeries. For the past 2-3 days has had increasing periumbilical pain. Constant. Worse with food intake. Does not radiate. Associated with nausea and an urge to burp constantly. On arrival had an episode of large yellow-colored emesis. No diarrhea, hematochezia, melena. No dysuria, urgency, or frequency. (LOLY REYNOLDS MD) Review of Systems: Review of Systems: Constitutional: Denies fever or chills. [] Eyes: Denies change in visual acuity. [] HENT: Denies nasal congestion or sore throat. [] Respiratory: Denies cough or shortness of breath. [] Cardiovascular: Denies chest pain or edema. [] GI: Reports abdominal pain, nausea, vomiting : Denies dysuria. [] Musculoskeletal: Denies back pain or joint pain. [] Integument: Denies rash. [] Neurologic: Denies headache, focal weakness or sensory changes. [] Endocrine: Denies polyuria or polydipsia. [] Lymphatic: Denies swollen glands. [] Psychiatric: Denies depression or anxiety. [] (LOLY REYNOLDS MD) Heart Score: C/O Chest Pain: No Risk Factors: Risk Factors: DM, Current or recent (<one month) smoker, HTN, HLP, family history of CAD, obesity. Risk Scores: Score 0 - 3: 2.5% MACE over next 6 weeks - Discharge Home Score 4 - 6: 20.3% MACE over next 6 weeks - Admit for Clinical Observation Score 7 - 10: 72.7% MACE over next 6 weeks - Early Invasive Strategies (LOLY REYNOLDS MD) C/O Chest Pain: No (SEEMA RUBIN DO) Current Medications: Current Medications Medications (Trade) Dose Ordered Sig/Fede Start Time Stop Time Status Last Admin Dose Admin Info (CONTRAST GIVEN -- Rx MONITORING) 1 each PRN DAILY PRN 05/31/21 17:45 06/02/21 17:44 Iohexol (Omnipaque 300 Mg/ml) 75 ml 1X ONCE 05/31/21 17:45 05/31/21 17:46 DC Morphine Sulfate (Morphine Sulfate) 5 mg 1X ONCE 05/31/21 17:00 05/31/21 17:01 DC 05/31/21 17:31 5 MG Ondansetron HCl (Zofran) 4 mg 1X ONCE 05/31/21 17:00 05/31/21 17:01 DC 05/31/21 17:31 4 MG (LOLY REYNOLDS MD) Allergies: Allergies: Allergies Coded Allergies Type Severity Reaction Last Updated Verified FRANCISCO Inhibitors Allergy Intermediate 05/31/21 Yes clopidogrel Allergy Intermediate Rash, itching 05/31/21 Yes fenofibrate Allergy Intermediate RASH 05/31/21 Yes guaifenesin Allergy Intermediate 05/31/21 Yes nabumetone Allergy Intermediate 05/31/21 Yes pravastatin Allergy Intermediate RASH 05/31/21 Yes ticagrelor Allergy Intermediate 11/26/20 Yes atorvastatin Adverse Reaction Intermediate GI BLEED 12/09/20 Yes (LOLY REYNOLDS MD) Physical Exam: PE: Constitutional: Appears acutely uncomfortable HENT: Normocephalic, atraumatic, bilateral external ears normal, oropharynx moist, no oral exudates, nose normal. [] Eyes: PERRLA, EOMI, conjunctiva normal, no discharge. [] Neck: Normal range of motion, no tenderness, supple, no stridor. [] Cardiovascular:Heart rate regular rhythm, no murmur [] Lungs & Thorax: Mild tachypnea. Sternotomy scar. Bilateral breath sounds clear to auscultation [] Abdomen: Diffuse abdominal tenderness to palpation. Skin: Warm, dry, no erythema, no rash. [] Back: No tenderness, no CVA tenderness. [] Extremities: No tenderness, no cyanosis, no clubbing, ROM intact, no edema. [] Neurologic: Alert and oriented X 3, normal motor function, normal sensory function, no focal deficits noted. [] Psychologic: Affect normal, judgement normal, mood normal. [] (LOLY REYNOLDS MD) Current Patient Data: Labs: Laboratory Tests Test 05/31/21 17:33 White Blood Count 11.7 x10^3/uL (4.0-11.0) H Red Blood Count 4.22 x10^6/uL (4.30-5.70) L Hemoglobin 14.3 g/dL (13.0-17.5) Hematocrit 42.5 % (39.0-53.0) Mean Corpuscular Volume 101 fL (79-100) H Mean Corpuscular Hemoglobin 34 pg (25-35) Mean Corpuscular Hemoglobin Concent 34 g/dL (31-37) Red Cell Distribution Width 14.9 % (11.5-14.5) H Platelet Count 278 x10^3/uL (140-400) Neutrophils (%) (Auto) 95 % (31-73) H Lymphocytes (%) (Auto) 3 % (24-48) L Monocytes (%) (Auto) 2 % (0-9) Eosinophils (%) (Auto) 0 % (0-3) Basophils (%) (Auto) 0 % (0-3) Neutrophils # (Auto) 11.1 x10^3/uL (1.8-7.7) H Lymphocytes # (Auto) 0.3 x10^3/uL (1.0-4.8) L Monocytes # (Auto) 0.2 x10^3/uL (0.0-1.1) Eosinophils # (Auto) 0.0 x10^3/uL (0.0-0.7) Basophils # (Auto) 0.0 x10^3/uL (0.0-0.2) Platelet Estimate Pending Sodium Level 139 mmol/L (136-145) Potassium Level 4.5 mmol/L (3.5-5.1) Chloride Level 102 mmol/L (98-107) Carbon Dioxide Level 26 mmol/L (21-32) Anion Gap 11 (6-14) Blood Urea Nitrogen 13 mg/dL (8-26) Creatinine 1.2 mg/dL (0.7-1.3) Estimated GFR (Cockcroft-Gault) 70.0 BUN/Creatinine Ratio 11 (6-20) Glucose Level 114 mg/dL (70-99) H Calcium Level 9.8 mg/dL (8.5-10.1) Total Bilirubin Pending Aspartate Amino Transferase (AST) Pending Alanine Aminotransferase (ALT) Pending Alkaline Phosphatase Pending Total Protein Pending Albumin Pending Albumin/Globulin Ratio Pending Lipase Pending Laboratory Tests 05/31/21 17:33 Laboratory Tests 05/31/21 17:33 Vital Signs: Vital Signs Date Time Temp Pulse Resp B/P (MAP) Pulse Ox O2 Delivery O2 Flow Rate FiO2 05/31/21 17:31 Room Air 05/31/21 16:55 98.4 92 15 158/78 (104) 99 98.4 (LOLY REYNOLDS MD) EKG: EKG: Pending [] (LOLY REYNOLDS MD) Radiology/Procedures: Radiology/Procedures: [] (LOLY REYNOLDS MD) Radiology/Procedures: IMAGING REPORT Signed PATIENT: GURINDER MAHMOODACCOUNT: [id number] : 1935 LOCATION: ER AGE: 85 SEX: M EXAM STATUS: REG ER ORD. PHYSICIAN: LOLY REYNOLDS MD REASON: abd pain, vomiting, hx sbo PROCEDURE: CT ABD PELV W/ IV CONTRST ONLY CT abdomen and pelvis with contrast PQRS statement: CT scans at this facility use dose reduction including either automated exposure control, iterative reconstructions, and /or weight based radiation dosing via mA and kV modification when appropriate to reduce radiation dose to as low as reasonably achievable. HISTORY: Abdominal pain. Vomiting. Small bowel obstruction. Contrast: 75 mL of opaque 300 intravenous contrast. COMPARISON: CT abdomen and pelvis December 09, 2020 Abdomen findings: Lung bases demonstrate tiny areas of nodularity measuring 3 mm or less in size of the right middle and lower lobe stable to prior exam. Bulky lumbar disc bulges and disc osteophytes with spinal canal and neural foraminal stenoses several levels. Elevation left diaphragm a mild degree stable. Mild hypoplasia of the spleen or atrophy stable. Liver, gallbladder, pancreas and adrenal glands unremarkable. Several bilateral sizable renal cysts stable to prior examination. 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 No closed loop obstruction present to suggest internal hernia or twisting of bowel to suggest volvulus. Mild volume of stool within the colon. Calcified plaque and tortuosity of the aorta and iliac arteries and abdominal arteries, mild ectasia infrarenal aorta diameter 2.4 cm. Pelvis findings: Mild prominence of the prostate. Bladder, rectum and bones are unremarkable. No pelvic fluid. IMPRESSION: 1. 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 There is mild mesenteric edema present. See above. 2. Other stable chronic findings as described above. Electronically signed by: Wally Garibay MD (05/31/2021 6:26 PM) [facility] DICTATED and SIGNED BY: WALLY GARIBAY MD DATE: 05/31/21 [id number] (SEEMA RUBIN DO) Course & Med Decision Making: Course & Med Decision Making Pertinent Labs and Imaging studies reviewed. (See chart for details) Patient 85-year-old male history of CAD, previous bowel obstructions, chronic abdominal pain presents with acute worsening of abdominal pain, nausea, vomiting. He appears in acute distress on arrival and is vomiting. Diffuse abdominal tenderness on palpation. Fortunately vital signs stable on arrival. Labs to this point revealed mild leukocytosis. Reassuring BMP. Troponin, lipase, LFTs pending as well as CT abdomen/pelvis at time of signout to oncoming provider 1800. (LOLY REYNOLDS MD) Course & Med Decision Making This patient was initially seen by Dr. Reynolds. Please see his note for further details of H&P. I assumed care at [address] returned showing small bowel obstruction and likely adhesions. Laboratory evaluation is unremarkable. The patient is kept n.p.o. He reports feeling better after IV Zofran and morphine are given. I ordered IV fluids. I did order another dose of Zofran and morphine for Continued milder pain and nausea. I discussed the findings, differential diagnosis and plan of care with the patient. I recommended admission secondary to recurrent small bowel obstruction. No current indication for NG tube placement at this time, as nausea and vomiting is currently resolved. His abdomen is nondistended. He admits that he is feeling overall much better. He is amenable to admission, arrangements are made for this. He is accepted for admission by Dr. Piper. (SEEMA RUBIN DO) Dragon Disclaimer: Dragon Disclaimer: This electronic medical record was generated, in whole or in part, using a voice recognition dictation system. (LOLY REYNOLDS MD) Departure Departure Impression: Primary Impression: Small bowel obstruction Disposition: ADMITTED INPATIENT Admitting Physician: KYRA (SEEMA RUBIN DO) Condition: STABLE Referrals: NATHAN KEBEDE MD (PCP) LOLY REYNOLDS MD May 31, 2021 18:02 SEEMA RUBIN DO May 31, 2021 18:37
[2021-05-31 18:08] LABS: % BANDS 3 % (0-9); % LYMPHS 5 % (24-48); % MONOS 1 % (0-10); % SEGS 91 % (35-66); PLT ESTIMATE ADEQUATE (ADEQUATE)
--- NOTE | 2021-05-31 18:28 | RAD ---
CT abdomen and pelvis with contrast PQRS statement: CT scans at this facility use dose reduction including either automated exposure cont rol, iterative reconstructions, and /or weight based radiation dosing via mA and kV modification when appropriate to reduce radiation dose to as low as reasonably achievable. HISTORY: Abdominal pain. Vomiting. Small bowel obstruction. Contrast: 75 mL of opaque 300 intravenous contrast. COMPARISON: CT abdomen and pelvis December 09, 2020 Abdomen findings: Lung bases demonstrate tiny areas of nodularity measuring 3 mm or less in size of t he right middle and lower lobe stable to prior exam. Bulky lumbar disc bulges and disc osteophytes wi th spinal canal and neural foraminal stenoses several levels. Elevation left diaphragm a mild degree stable. Mild hypoplasia of the spleen or atrophy stable. Liver, gallbladder, pancreas and adrenal gla nds unremarkable. Several bilateral sizable renal cysts stable to prior examination. 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 No closed loop obstruction present to suggest internal he rnia or twisting of bowel to suggest volvulus. Mild volume of stool within the colon. Calcified plaqu e and tortuosity of the aorta and iliac arteries and abdominal arteries, mild ectasia infrarenal aort a diameter 2.4 cm. Pelvis findings: Mild prominence of the prostate. Bladder, rectum and bones are unremarkable. No pelv ic fluid. IMPRESSION: 1. Prominent fluid distention of the stomach, duodenum and proximal jejunum likely due to a small bow el obstruction with probable transition point at the midline upper abdomen at the proximal jejunum wi th tethering of bowel loops which may be due to an adhesion, there is also abrupt stenosis of the sup erior mesenteric vein at this region which could be due to an adhesion crossing and narrowing the vei n at this region. There is mild mesenteric edema present. See above. 2. Other stable chronic findings as described above. Electronically signed by: Antonio Garibay MD (05/31/2021 6:26 PM) [facility]
[2021-05-31] MEDS ORDERED: MORPHINE SULFATE 2 MG/ML INJ. IVP ONE (18:45)
[2021-05-31] MEDS ORDERED: IV NORMAL SALINE 1000ML BAG 1,000 ML IV ONE (18:45)
[2021-05-31] MEDS ORDERED: IV DEXTROSE 5 %-0.45 % NACL 1,000 ML IV ONE (19:00)
--- NOTE | 2021-05-31 20:30 | NUR ---
Patient admitted from ER to room 436 per cart. Admitting diagnosis: SBO. Patient c/o of reflux, N&V and abdominal pain x1 week. Patient stated that today has been the worst day. Patient has pain in all 4 quads of abdomen and has been vomiting yellow bile. Bowel sounds are hyperactive in all [address] Scan positive for SBO. Patient is NPO. Pain has improved after being treated in ER. Will continue to monitor.
[2021-05-31 22:43] VITALS: BP 144/61
[2021-06-01] MEDS: ONDANSETRON PF 4 MG/2 ML VIAL. IVP PRN ×2 (00:26→07:21)
[2021-06-01] MEDS: MORPHINE SULFATE 4 MG/ML INJ. IVP PRN ×3 (00:32→11:30)
[2021-06-01 02:50] VITALS: BP 128/66
[2021-06-01 07:00] VITALS: BP 119/63
--- NOTE | 2021-06-01 09:07 | PDOC2 ---
FRANCK LEON [employer] 06/01/21 0907: CONSULT Date of Consult Date of Consult DATE: 06/01/21 TIME: 09:03 Reason for Consult Reason for Consult: SBO Referring Physician Referring Physician: ER Identification/Chief Complaint Chief Complaint abdominal pain Source Source: Chart review, Patient History of Present Illness Reason for Visit: Admitted with worsening abdominal pain and vomiting. He was here in November with similar symptoms, however resolved and discharged. Reports ongoing issues intermittently, although constipation related and resolve with laxative and passing gas and stool. was seen by dr corrales and had egd and colonoscopy last year. treated with linzess for his constipation. Reports 50 lbs weight loss in last 3-4 months Past Medical History Cardiovascular: CAD GI: Constipation, GERD, Irritable bowel disease Renal/: Benign prostatic enlarg., Other Past Surgical History Past Surgical History: Hernia Repair, Other (cardiac stents ) Family History Family History: Family History Unknown Social History ALCOHOL: none Drugs: None Current Problem List Problem List Problems Medical Problems: (1) Small bowel obstruction Status: Acute Current Medications Current Medications Current Medications Morphine Sulfate (Morphine Sulfate) 5 mg 1X ONCE IVP Last administered on 05/31/21at 17:31; Start 05/31/21 at 17:00; Stop 05/31/21 at 17:01; Status DC Ondansetron HCl (Zofran) 4 mg 1X ONCE IVP Last administered on 05/31/21at 17:31; Start 05/31/21 at 17:00; Stop 05/31/21 at 17:01; Status DC Iohexol (Omnipaque 300 Mg/ml) 75 ml 1X ONCE IV Last administered on 05/31/21at 18:04; Start 05/31/21 at 17:45; Stop 05/31/21 at 17:46; Status DC Info (CONTRAST GIVEN -- Rx MONITORING) 1 each PRN DAILY PRN MC SEE COMMENTS; Start 05/31/21 at 17:45; Stop 06/02/21 at 17:44 Sodium Chloride 1,000 ml @ 1,000 mls/hr 1X ONCE IV Last administered on 05/31/21at 18:47; Start 05/31/21 at 18:45; Stop 05/31/21 at 19:44; Status DC Morphine Sulfate (Morphine Sulfate) 2 mg 1X ONCE IVP Last administered on 05/31/21at 18:47; Start 05/31/21 at 18:45; Stop 05/31/21 at 18:46; Status DC Ondansetron HCl (Zofran) 4 mg 1X ONCE IVP Last administered on 05/31/21at 18:47; Start 05/31/21 at 18:45; Stop 05/31/21 at 18:46; Status DC Ondansetron HCl (Zofran) 4 mg PRN Q8HRS PRN IVP NAUSEA/VOMITING Last administered on 06/01/21at 07:21; Start 05/31/21 at 19:00; Stop 06/01/21 at 18:59 Dextrose/Sodium Chloride 1,000 ml @ 75 mls/hr 1X ONCE IV Last administered on 05/31/21at 22:35; Start 05/31/21 at 19:00; Stop 06/01/21 at 08:19; Status DC Morphine Sulfate (Morphine Sulfate) 4 mg PRN Q2HR PRN IVP pain Last administered on 06/01/21at 07:21; Start 05/31/21 at 19:00 Active Scripts Active Senna-Docusate Sodium Tablet (Sennosides/Docusate Sodium) 1 Each Tablet 2 Tab PO BID 5 Days Reported Artificial Tears Drops (Peg 400/Hypromellose/Glycerin) 15 Ml Drops 1 Drop EACHEYE QID 30 Days Latanoprost 0.005% Eye Drop (Latanoprost/Pf) 7.5 Ml Drops 1 Drop OU QHS Avodart (Dutasteride) 0.5 Mg Capsule 1 Cap PO DAILY Flomax (Tamsulosin Hcl) 0.4 Mg Cap.er.24h 1 Cap PO DAILY Diclofenac Sodium 150 Ml Drops 15 Desire TP QID 30 Days Flonase Allergy Relief (Fluticasone Propionate) 9.9 Ml [place].susp 2 Sprays NS PRN BID PRN Simethicone 80 Mg Tab.chew 1 Tab PO TID 6 Days Vitamin D3 (Vitamin D) 125 Mcg Capsule 125 Mcg PO DAILY 5,000 UNITS = 125 MCG Aspirin Ec (Aspirin) 81 Mg Tablet.dr 1 Tab PO DAILY Pantoprazole Sodium (Pantoprazole Sodium) 40 Mg Tablet.dr 40 Mg PO BIDAC Rosuvastatin Calcium 40 Mg Tablet 20 Mg PO DAILY16 Multivitamins (Multivitamin) 1 Each Tablet 1 Tab PO DAILY Toprol Xl (Metoprolol Succinate) 50 Mg Tab.er.24h 50 Mg PO BID Allergies Allergies: Coded Allergies: FRANCISCO Inhibitors (Verified Allergy, Intermediate, 05/31/21) clopidogrel (Verified Allergy, Intermediate, Rash, itching, 05/31/21) fenofibrate (Verified Allergy, Intermediate, RASH, 05/31/21) guaifenesin (Verified Allergy, Intermediate, 05/31/21) nabumetone (Verified Allergy, Intermediate, 05/31/21) pravastatin (Verified Allergy, Intermediate, RASH, 05/31/21) ticagrelor (Verified Allergy, Intermediate, 11/26/20) atorvastatin (Verified Adverse Reaction, Intermediate, GI BLEED, 12/09/20) ROS General: YES: Fatigue, Appetite (loss); No: Chills PSYCHOLOGICAL ROS: No: Anxiety, Depression Eyes: No Blurry vision HEENT: No: Heacaches, Sore Throat Hematological and Lymphatic: No: Bleeding Problems, Blood Clots Respiratory: No: Cough, SOB with excertion Cardiovascular: No Chest Pain, No Palpitations Gastrointestinal: Yes Other (see hpi) Genitourinary: No Dysuria, No Retention Musculoskeletal: No Joint Pain, No Muscle Pain Neurological: No Impaired Coord/balance, No Numbness/Tingling Skin: No Pruritus, No Rash Physical Exam General: Alert, Oriented X3, Cooperative, Other (frail) HEENT: Atraumatic, PERRLA Lungs: Clear to auscultation, Normal air movement Heart: Regular rate, Normal S1, Normal S2 Abdomen: Soft, Other (mildly tender mid abdomen ) Extremities: No clubbing, No cyanosis Skin: No rashes, No breakdown Neuro: Normal gait, Normal speech Psych/Mental Status: Mental status NL, Mood NL MUSCULOSKELETAL: No deformity, No swelling Vitals VITALS Vital Signs Date Time Temp Pulse Resp B/P (MAP) Pulse Ox O2 Delivery O2 Flow Rate FiO2 06/01/21 07:21 16 Room Air 06/01/21 07:00 97.5 87 119/63 (81) 96 97.5 Labs Labs Laboratory Tests Test 05/31/21 17:33 White Blood Count 11.7 x10^3/uL (4.0-11.0) Red Blood Count 4.22 x10^6/uL (4.30-5.70) Hemoglobin 14.3 g/dL (13.0-17.5) Hematocrit 42.5 % (39.0-53.0) Mean Corpuscular Volume 101 fL (79-100) Mean Corpuscular Hemoglobin 34 pg (25-35) Mean Corpuscular Hemoglobin Concent 34 g/dL (31-37) Red Cell Distribution Width 14.9 % (11.5-14.5) Platelet Count 278 x10^3/uL (140-400) Neutrophils (%) (Auto) 95 % (31-73) Lymphocytes (%) (Auto) 3 % (24-48) Monocytes (%) (Auto) 2 % (0-9) Eosinophils (%) (Auto) 0 % (0-3) Basophils (%) (Auto) 0 % (0-3) Neutrophils # (Auto) 11.1 x10^3/uL (1.8-7.7) Lymphocytes # (Auto) 0.3 x10^3/uL (1.0-4.8) Monocytes # (Auto) 0.2 x10^3/uL (0.0-1.1) Eosinophils # (Auto) 0.0 x10^3/uL (0.0-0.7) Basophils # (Auto) 0.0 x10^3/uL (0.0-0.2) Segmented Neutrophils % 91 % (35-66) Band Neutrophils % 3 % (0-9) Lymphocytes % 5 % (24-48) Monocytes % 1 % (0-10) Platelet Estimate Adequate (ADEQUATE) Sodium Level 139 mmol/L (136-145) Potassium Level 4.5 mmol/L (3.5-5.1) Chloride Level 102 mmol/L (98-107) Carbon Dioxide Level 26 mmol/L (21-32) Anion Gap 11 (6-14) Blood Urea Nitrogen 13 mg/dL (8-26) Creatinine 1.2 mg/dL (0.7-1.3) Estimated GFR (Cockcroft-Gault) 70.0 BUN/Creatinine Ratio 11 (6-20) Glucose Level 114 mg/dL (70-99) Lactic Acid Level 1.6 mmol/L (0.4-2.0) Calcium Level 9.8 mg/dL (8.5-10.1) Total Bilirubin 0.5 mg/dL (0.2-1.0) Aspartate Amino Transf (AST/SGOT) 19 U/L (15-37) Alanine Aminotransferase (ALT/SGPT) 25 U/L (16-63) Alkaline Phosphatase 85 U/L (46-116) Troponin I High Sensitivity 6 ng/L (4-75) Total Protein 7.9 g/dL (6.4-8.2) Albumin 4.4 g/dL (3.4-5.0) Albumin/Globulin Ratio 1.3 (1.0-1.7) Lipase 185 U/L (73-393) Laboratory Tests Test 05/31/21 17:33 White Blood Count 11.7 x10^3/uL (4.0-11.0) Red Blood Count 4.22 x10^6/uL (4.30-5.70) Hemoglobin 14.3 g/dL (13.0-17.5) Hematocrit 42.5 % (39.0-53.0) Mean Corpuscular Volume 101 fL (79-100) Mean Corpuscular Hemoglobin 34 pg (25-35) Mean Corpuscular Hemoglobin Concent 34 g/dL (31-37) Red Cell Distribution Width 14.9 % (11.5-14.5) Platelet Count 278 x10^3/uL (140-400) Neutrophils (%) (Auto) 95 % (31-73) Lymphocytes (%) (Auto) 3 % (24-48) Monocytes (%) (Auto) 2 % (0-9) Eosinophils (%) (Auto) 0 % (0-3) Basophils (%) (Auto) 0 % (0-3) Neutrophils # (Auto) 11.1 x10^3/uL (1.8-7.7) Lymphocytes # (Auto) 0.3 x10^3/uL (1.0-4.8) Monocytes # (Auto) 0.2 x10^3/uL (0.0-1.1) Eosinophils # (Auto) 0.0 x10^3/uL (0.0-0.7) Basophils # (Auto) 0.0 x10^3/uL (0.0-0.2) Segmented Neutrophils % 91 % (35-66) Band Neutrophils % 3 % (0-9) Lymphocytes % 5 % (24-48) Monocytes % 1 % (0-10) Platelet Estimate Adequate (ADEQUATE) Sodium Level 139 mmol/L (136-145) Potassium Level 4.5 mmol/L (3.5-5.1) Chloride Level 102 mmol/L (98-107) Carbon Dioxide Level 26 mmol/L (21-32) Anion Gap 11 (6-14) Blood Urea Nitrogen 13 mg/dL (8-26) Creatinine 1.2 mg/dL (0.7-1.3) Estimated GFR (Cockcroft-Gault) 70.0 BUN/Creatinine Ratio 11 (6-20) Glucose Level 114 mg/dL (70-99) Lactic Acid Level 1.6 mmol/L (0.4-2.0) Calcium Level 9.8 mg/dL (8.5-10.1) Total Bilirubin 0.5 mg/dL (0.2-1.0) Aspartate Amino Transf (AST/SGOT) 19 U/L (15-37) Alanine Aminotransferase (ALT/SGPT) 25 U/L (16-63) Alkaline Phosphatase 85 U/L (46-116) Troponin I High Sensitivity 6 ng/L (4-75) Total Protein 7.9 g/dL (6.4-8.2) Albumin 4.4 g/dL (3.4-5.0) Albumin/Globulin Ratio 1.3 (1.0-1.7) Lipase 185 U/L (73-393) Assessment/Plan Assessment/Plan SBO reviewed CT will place NG, SBFT MICHAEL GILES MD 06/01/21 1543: CONSULT Assessment/Plan Assessment/Plan Pt seen and examined. Agree with Ms. Leon's note Pt with c/o abd pain and N/V abd soft, mild distention now with NGT will check SBFT Thanks for consult! FRANCK LEON APRN Jun 01, 2021 09:07 MICHAEL GILES MD Jun 01, 2021 15:43
--- NOTE | 2021-06-01 09:20 | PDOC1 ---
History and Physical Date of Service: DOS: DATE: 06/01/21 TIME: 09:16 Chief Complaint: Chief Complain: Abdominal pain History of Present Illness: HPI: History obtained from discussion with the ED physician and chart review: 85 year old male with history of CAD, HTN, HLD, GERD, previous bowel obstruction in September 2020 who presents with worsening abdominal pain. Patient has had intermittent abdominal pain since his CABG in June 2020. He has had extensive work-up including EGD, colonoscopy, GI, and surgery consultations. He did appear to have a small bowel obstruction in November of this year of unclear etiology, he is he does not have any history of hernia or previous abdominal surgeries. For the past 2-3 days has had increasing periumbilical pain. Constant. Worse with food intake. Does not radiate. Associated with nausea and an urge to burp constantly. On arrival had an episode of large yellow-colored emesis. No diarrhea, hematochezia, melena. No dysuria, urgency, or frequency. Past Medical/Surgical History: PMH/PSH: Past Medical History: Arthritis, GERD, High Cholesterol, Hypertension, MT, BPH, URINARY RETENTION Past Surgical History: CABG Allergies: Allergies: Coded Allergies: FRANCISCO Inhibitors (Verified Allergy, Intermediate, 05/31/21) clopidogrel (Verified Allergy, Intermediate, Rash, itching, 05/31/21) fenofibrate (Verified Allergy, Intermediate, RASH, 05/31/21) guaifenesin (Verified Allergy, Intermediate, 05/31/21) nabumetone (Verified Allergy, Intermediate, 05/31/21) pravastatin (Verified Allergy, Intermediate, RASH, 05/31/21) ticagrelor (Verified Allergy, Intermediate, 11/26/20) atorvastatin (Verified Adverse Reaction, Intermediate, GI BLEED, 12/09/20) Family History: Family History: Reviewed with no relevant findings Social History: Social History: Smoking Status: Former Smoker Alcohol Use: None Drug Use: None Current Medications: Current Medications Current Medications Morphine Sulfate (Morphine Sulfate) 5 mg 1X ONCE IVP Last administered on 05/31/21at 17:31; Start 05/31/21 at 17:00; Stop 05/31/21 at 17:01; Status DC Ondansetron HCl (Zofran) 4 mg 1X ONCE IVP Last administered on 05/31/21at 17:31; Start 05/31/21 at 17:00; Stop 05/31/21 at 17:01; Status DC Iohexol (Omnipaque 300 Mg/ml) 75 ml 1X ONCE IV Last administered on 05/31/21at 18:04; Start 05/31/21 at 17:45; Stop 05/31/21 at 17:46; Status DC Info (CONTRAST GIVEN -- Rx MONITORING) 1 each PRN DAILY PRN MC SEE COMMENTS; Start 05/31/21 at 17:45; Stop 06/02/21 at 17:44 Sodium Chloride 1,000 ml @ 1,000 mls/hr 1X ONCE IV Last administered on 05/31/21at 18:47; Start 05/31/21 at 18:45; Stop 05/31/21 at 19:44; Status DC Morphine Sulfate (Morphine Sulfate) 2 mg 1X ONCE IVP Last administered on 05/31/21at 18:47; Start 05/31/21 at 18:45; Stop 05/31/21 at 18:46; Status DC Ondansetron HCl (Zofran) 4 mg 1X ONCE IVP Last administered on 05/31/21at 18:47; Start 05/31/21 at 18:45; Stop 05/31/21 at 18:46; Status DC Ondansetron HCl (Zofran) 4 mg PRN Q8HRS PRN IVP NAUSEA/VOMITING Last administered on 06/01/21at 07:21; Start 05/31/21 at 19:00; Stop 06/01/21 at 18:59 Dextrose/Sodium Chloride 1,000 ml @ 75 mls/hr 1X ONCE IV Last administered on 05/31/21at 22:35; Start 05/31/21 at 19:00; Stop 06/01/21 at 08:19; Status DC Morphine Sulfate (Morphine Sulfate) 4 mg PRN Q2HR PRN IVP pain Last administered on 06/01/21at 07:21; Start 05/31/21 at 19:00 Active Scripts Active Senna-Docusate Sodium Tablet (Sennosides/Docusate Sodium) 1 Each Tablet 2 Tab PO BID 5 Days Reported Artificial Tears Drops (Peg 400/Hypromellose/Glycerin) 15 Ml Drops 1 Drop EACHEYE QID 30 Days Latanoprost 0.005% Eye Drop (Latanoprost/Pf) 7.5 Ml Drops 1 Drop OU QHS Avodart (Dutasteride) 0.5 Mg Capsule 1 Cap PO DAILY Flomax (Tamsulosin Hcl) 0.4 Mg Cap.er.24h 1 Cap PO DAILY Diclofenac Sodium 150 Ml Drops 15 Desire TP QID 30 Days Flonase Allergy Relief (Fluticasone Propionate) 9.9 Ml [place].susp 2 Sprays NS PRN BID PRN Simethicone 80 Mg Tab.chew 1 Tab PO TID 6 Days Vitamin D3 (Vitamin D) 125 Mcg Capsule 125 Mcg PO DAILY 5,000 UNITS = 125 MCG Aspirin Ec (Aspirin) 81 Mg Tablet.dr 1 Tab PO DAILY Pantoprazole Sodium (Pantoprazole Sodium) 40 Mg Tablet.dr 40 Mg PO BIDAC Rosuvastatin Calcium 40 Mg Tablet 20 Mg PO DAILY16 Multivitamins (Multivitamin) 1 Each Tablet 1 Tab PO DAILY Toprol Xl (Metoprolol Succinate) 50 Mg Tab.er.24h 50 Mg PO BID ROS: Review of Systems Review of System REVIEW OF SYSTEMS: GENERAL: Denies weakness SKIN: No bruising, hair changes or rashes. EYES: No blurred, double or loss of vision. NOSE AND THROAT: No history of nosebleeds, hoarseness or sore throat. HEART: No history of palpitations, chest pain or shortness of breath on exertion. LUNGS: Denies cough, hemoptysis, wheezing or shortness of breath. GASTROINTESTINAL: Denies changes in appetite, nausea, vomiting, diarrhea or constipation. GENITOURINARY: No history of frequency, urgency, hesitancy or nocturia. NEUROLOGIC: Denies history of numbness, tingling, or tremor. PSYCHIATRIC: No history of panic, anxiety or depression. ENDOCRINE: No history of heat or cold intolerance, polyuria or polydipsia. EXTREMITIES: Denies joint pain, pain on walking or stiffness. Physical Exam: Vital Signs: Vital Signs Date Time Temp Pulse Resp B/P (MAP) Pulse Ox O2 Delivery O2 Flow Rate FiO2 06/01/21 07:21 16 Room Air 06/01/21 07:00 97.5 87 119/63 (81) 96 97.5 Physcial Exam: GEN: No apparent distress. Alert and oriented HEENT: Normal cephalic, atraumatic, external auditory canals are patent EYES: Extraocular muscles are intact, pupil are equally round and reactive to light and accommodation MUSCULOSKELETAL: Well developed , well nourished, good range of motion ENDOCRINE: No thyromegaly was palpated LYMPHATICS: No cervical chain or axillary nodes were noted HEMATOPOIETIC: No bruising NECK: Supple, no JVD, no thyromegaly was noted LUNGS: Clear to auscultation in all lung asencio without rhonchi or wheezing HEART: RRR, S!, S2 present. Peripheral pulses intact, no obvious murmurs not ed ABDOMEN: Soft, nontender. Positive bowel sounds, no organomegaly, normal bowel sounds EXTREMITIES: Without clubbing, cyanosis, or edema. Pedal pulses intact. Negative Homans sign NEUROLOGIC: Normal speech and tone. A&O x 3, moves all extremities, no obvious focal deficits PSYCHIATRIC: Normal affect, normal mood. Stable SKIN: No ulcerations or rashes, good skin turgor, no jaundice VASCULAR: Good capillary refill, neurovascular bundle appears to be intact Labs: Labs: Laboratory Tests Test 05/31/21 17:33 White Blood Count 11.7 x10^3/uL (4.0-11.0) Red Blood Count 4.22 x10^6/uL (4.30-5.70) Hemoglobin 14.3 g/dL (13.0-17.5) Hematocrit 42.5 % (39.0-53.0) Mean Corpuscular Volume 101 fL (79-100) Mean Corpuscular Hemoglobin 34 pg (25-35) Mean Corpuscular Hemoglobin Concent 34 g/dL (31-37) Red Cell Distribution Width 14.9 % (11.5-14.5) Platelet Count 278 x10^3/uL (140-400) Neutrophils (%) (Auto) 95 % (31-73) Lymphocytes (%) (Auto) 3 % (24-48) Monocytes (%) (Auto) 2 % (0-9) Eosinophils (%) (Auto) 0 % (0-3) Basophils (%) (Auto) 0 % (0-3) Neutrophils # (Auto) 11.1 x10^3/uL (1.8-7.7) Lymphocytes # (Auto) 0.3 x10^3/uL (1.0-4.8) Monocytes # (Auto) 0.2 x10^3/uL (0.0-1.1) Eosinophils # (Auto) 0.0 x10^3/uL (0.0-0.7) Basophils # (Auto) 0.0 x10^3/uL (0.0-0.2) Segmented Neutrophils % 91 % (35-66) Band Neutrophils % 3 % (0-9) Lymphocytes % 5 % (24-48) Monocytes % 1 % (0-10) Platelet Estimate Adequate (ADEQUATE) Sodium Level 139 mmol/L (136-145) Potassium Level 4.5 mmol/L (3.5-5.1) Chloride Level 102 mmol/L (98-107) Carbon Dioxide Level 26 mmol/L (21-32) Anion Gap 11 (6-14) Blood Urea Nitrogen 13 mg/dL (8-26) Creatinine 1.2 mg/dL (0.7-1.3) Estimated GFR (Cockcroft-Gault) 70.0 BUN/Creatinine Ratio 11 (6-20) Glucose Level 114 mg/dL (70-99) Lactic Acid Level 1.6 mmol/L (0.4-2.0) Calcium Level 9.8 mg/dL (8.5-10.1) Total Bilirubin 0.5 mg/dL (0.2-1.0) Aspartate Amino Transf (AST/SGOT) 19 U/L (15-37) Alanine Aminotransferase (ALT/SGPT) 25 U/L (16-63) Alkaline Phosphatase 85 U/L (46-116) Troponin I High Sensitivity 6 ng/L (4-75) Total Protein 7.9 g/dL (6.4-8.2) Albumin 4.4 g/dL (3.4-5.0) Albumin/Globulin Ratio 1.3 (1.0-1.7) Lipase 185 U/L (73-393) Laboratory Tests Test 05/31/21 17:33 White Blood Count 11.7 x10^3/uL (4.0-11.0) Red Blood Count 4.22 x10^6/uL (4.30-5.70) Hemoglobin 14.3 g/dL (13.0-17.5) Hematocrit 42.5 % (39.0-53.0) Mean Corpuscular Volume 101 fL (79-100) Mean Corpuscular Hemoglobin 34 pg (25-35) Mean Corpuscular Hemoglobin Concent 34 g/dL (31-37) Red Cell Distribution Width 14.9 % (11.5-14.5) Platelet Count 278 x10^3/uL (140-400) Neutrophils (%) (Auto) 95 % (31-73) Lymphocytes (%) (Auto) 3 % (24-48) Monocytes (%) (Auto) 2 % (0-9) Eosinophils (%) (Auto) 0 % (0-3) Basophils (%) (Auto) 0 % (0-3) Neutrophils # (Auto) 11.1 x10^3/uL (1.8-7.7) Lymphocytes # (Auto) 0.3 x10^3/uL (1.0-4.8) Monocytes # (Auto) 0.2 x10^3/uL (0.0-1.1) Eosinophils # (Auto) 0.0 x10^3/uL (0.0-0.7) Basophils # (Auto) 0.0 x10^3/uL (0.0-0.2) Segmented Neutrophils % 91 % (35-66) Band Neutrophils % 3 % (0-9) Lymphocytes % 5 % (24-48) Monocytes % 1 % (0-10) Platelet Estimate Adequate (ADEQUATE) Sodium Level 139 mmol/L (136-145) Potassium Level 4.5 mmol/L (3.5-5.1) Chloride Level 102 mmol/L (98-107) Carbon Dioxide Level 26 mmol/L (21-32) Anion Gap 11 (6-14) Blood Urea Nitrogen 13 mg/dL (8-26) Creatinine 1.2 mg/dL (0.7-1.3) Estimated GFR (Cockcroft-Gault) 70.0 BUN/Creatinine Ratio 11 (6-20) Glucose Level 114 mg/dL (70-99) Lactic Acid Level 1.6 mmol/L (0.4-2.0) Calcium Level 9.8 mg/dL (8.5-10.1) Total Bilirubin 0.5 mg/dL (0.2-1.0) Aspartate Amino Transf (AST/SGOT) 19 U/L (15-37) Alanine Aminotransferase (ALT/SGPT) 25 U/L (16-63) Alkaline Phosphatase 85 U/L (46-116) Troponin I High Sensitivity 6 ng/L (4-75) Total Protein 7.9 g/dL (6.4-8.2) Albumin 4.4 g/dL (3.4-5.0) Albumin/Globulin Ratio 1.3 (1.0-1.7) Lipase 185 U/L (73-393) Images: Images PROCEDURE: CT ABD PELV W/ IV CONTRST ONLY IMPRESSION: 1. 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 There is mild mesenteric edema present. See above. 2. Other stable chronic findings as described above. Assessment/Plan Assessment/Plan Acute abdominal pain due to small bowel obstruction Macrocytosis History of CABG History of GERD History of hypertension History of CAD History of dyslipidemia Admit to hospitalist service for further management Surgery consult for SBO Continue NG tube to [facility]. Serial abdominal exam Pending small bowel follow-through may have to wait until tomorrow because of active vomiting. SCD for DVT prophylaxis Protonix GI prophylaxis ADA diet CODE STATUS full Discussed with RN and SW Disposition inpatient management as above DPOA: Daughter In addition to my E/M visit, advance care planning done with A total time of 20 minutes was spent from 8:00 to 820 face to face in discussion regarding the patient's goals of care, CODE STATUS. Justifications for Admission Other Justification SBO OLIVER APONTE MD Jun 01, 2021 09:20
[2021-06-01] MEDS ORDERED: IOHEXOL 300 MG/ML 100ML VIAL. PO ONE (09:30)
[2021-06-01] MEDS ORDERED: LORazepam 0.5 MG TABLET PO PRN (10:15)
[2021-06-01] MEDS ORDERED: MORPHINE SULFATE 2 MG/ML INJ. IV PRN (10:15)
[2021-06-01] MEDS ORDERED: ACETAMINOPHEN 325 MG TABLET. PO PRN (10:15)
[2021-06-01] MEDS ORDERED: DOCUSATE SODIUM 100 MG CAPSULE. PO PRN (10:15)
[2021-06-01] MEDS ORDERED: SENNOSIDES 8.6 MG TABLET PO PRN (10:15)
[2021-06-01] MEDS ORDERED: ONDANSETRON PF 4 MG/2 ML VIAL. IVP PRN (10:15)
[2021-06-01] MEDS ORDERED: MORPHINE SULFATE 2 MG/ML INJ. IVP PRN (10:15)
[2021-06-01] MEDS ORDERED: DEXTROSE 50% 25 GM / 50ML DISP.SYRIN. IV PRN (10:15)
[2021-06-01] MEDS ORDERED: ZOLPIDEM 5 MG TABLET. PO PRN (10:15)
--- NOTE | 2021-06-01 10:22 | RAD ---
Upright abdomen, follow-up upright abdomen after tube repositioning HISTORY: NG tube placement, small bowel obstruction Upright views the abdomen were taken at 9:51 AM. NG tube is looped in the esophagus. The stomach is d istended. A second upright AP view was taken at 1003 following repositioning of the NG tube. The tube extends i nto the stomach in good position. Lung bases are clear. Stomach is still distended. IMPRESSION: 1. NG tube in good position on the second film. Electronically signed by: Jake Sandy MD (06/01/2021 10:20 AM) [facility]
[2021-06-01 11:00] VITALS: BP 156/72
[2021-06-01] MEDS: IV NORMAL SALINE 1000ML BAG 1,000 ML IV SCH ×2 (11:23→19:30)
[2021-06-01] MEDS: PROCHLORPERAZINE 10 MG/2 ML VIAL. IV PRN ×2 (11:30→19:30)
[2021-06-01] MEDS: PANTOPRAZOLE IV PUSH 40 MG VIAL. IVP SCH (14:11)
[2021-06-01 15:00] VITALS: BP 131/62
[2021-06-01 19:20] VITALS: BP 137/69
[2021-06-01 23:00] VITALS: BP 127/67
[2021-06-02 03:29] VITALS: BP 128/74
[2021-06-02 07:00] VITALS: BP 115/58
[2021-06-02] MEDS ORDERED: IOHEXOL 300 MG/ML 100ML VIAL. PO ONE (07:30)
[2021-06-02 07:42] LABS: BASO % 0 % (0-3); EOS % 0 % (0-3); HEMATOCRIT 39.6 % (39.0-53.0); HEMOGLOBIN 13.3 g/dL (13.0-17.5); LYMPH # 0.6 x10^3/uL (1.0-4.8); LYMPH % 6 % (24-48); MEAN CORPUSCULAR HEMOGLOBIN 34 pg (25-35); MEAN CORPUSCULAR HGB CONC 34 g/dL (31-37); MEAN CORPUSCULAR VOLUME 101 fL (79-100); MONO # 1.4 x10^3/uL (0.0-1.1); MONO % 14 % (0-9); NEUT # 8.2 x10^3/uL (1.8-7.7); NEUT % 81 % (31-73); PLATELET COUNT 248 x10^3/uL (140-400); RED BLOOD COUNT 3.92 x10^6/uL (4.30-5.70); RED CELL DISTRIBUTION WIDTH 14.9 % (11.5-14.5); WHITE BLOOD COUNT 10.2 x10^3/uL (4.0-11.0)
[2021-06-02 08:09] LABS: CALCIUM 8.8 mg/dL (8.5-10.1); GFR 86.3; PHOSPHORUS 3.7 mg/dL (2.6-4.7); POTASSIUM 4.3 mmol/L (3.5-5.1)
[2021-06-02] MEDS: IV NORMAL SALINE 1000ML BAG 1,000 ML IV SCH ×2 (10:04→16:15)
[2021-06-02] MEDS: PANTOPRAZOLE IV PUSH 40 MG VIAL. IVP SCH (10:04)
--- NOTE | 2021-06-02 10:14 | PDOC ---
[employer] PROGRESS NOTE Date of Service DOS: DATE: 06/02/21 TIME: 10:12 Chief Complaint Chief Complaint Acute abdominal pain due to small bowel obstruction status post NG tube placement 06/01/2021 Macrocytosis History of CABG History of GERD History of hypertension History of CAD History of dyslipidemia Pending small bowel follow-through Surgery consult for SBO Continue NG tube to [facility]. Serial abdominal exam Pending small bowel follow-through may have to wait until tomorrow because of active vomiting. SCD for DVT prophylaxis Protonix GI prophylaxis ADA diet CODE STATUS full Discussed with RN and SW Disposition inpatient management as above DPOA: Daughter History of Present Illness History of Present Illness Right. NG85 year old male with history of CAD, HTN, HLD, GERD, previous bowel obstruction in September 2020 who presents with worsening abdominal pain. Patient has had intermittent abdominal pain since his CABG in June 2020. He has had extensive work-up including EGD, colonoscopy, GI, and surgery consultations. He did appear to have a small bowel obstruction in November of this year of unclear etiology, he is he does not have any history of hernia or previous abdominal surgeries. For the past 2-3 days has had increasing periumbilical pain. Constant. Worse with food intake. Does not radiate. Associated with nausea and an urge to burp constantly. On arrival had an episode of large yellow-colored emesis. No diarrhea, hematochezia, melena. No dysuria, urgency, or frequency. 06/02/2021 No acute events overnight. NG tube placed yesterday with 500 cc of gastric fluid contents. Nonbloody and bilious in nature. Pending small bowel follow-through. Patient seen examined bedside and stable. Patient's chart, labs, images were reviewed and discussed with RN Vitals/I&O Vitals/I&O: Vital Signs Date Time Temp Pulse Resp B/P (MAP) Pulse Ox O2 Delivery O2 Flow Rate FiO2 06/02/21 07:00 97.5 85 18 115/58 (77) 98 Room Air 97.5 I & O 06/01/21 06/01/21 06/02/21 15:00 23:00 07:00 Output Total 200 ml 1700 ml 1250 ml Balance -200 ml -1700 ml -1250 ml Physical Exam General: Alert, Oriented X3, Cooperative, Other (frail) Heart: Regular rate, Normal S1, Normal S2 Lungs: Clear Abdomen: Soft, Other (mildly tender mid abdomen ) Extremities: No clubbing, No cyanosis Skin: No rashes, No breakdown Labs Labs: Laboratory Tests Test 06/02/21 06:55 White Blood Count 10.2 x10^3/uL (4.0-11.0) Red Blood Count 3.92 x10^6/uL (4.30-5.70) Hemoglobin 13.3 g/dL (13.0-17.5) Hematocrit 39.6 % (39.0-53.0) Mean Corpuscular Volume 101 fL (79-100) Mean Corpuscular Hemoglobin 34 pg (25-35) Mean Corpuscular Hemoglobin Concent 34 g/dL (31-37) Red Cell Distribution Width 14.9 % (11.5-14.5) Platelet Count 248 x10^3/uL (140-400) Neutrophils (%) (Auto) 81 % (31-73) Lymphocytes (%) (Auto) 6 % (24-48) Monocytes (%) (Auto) 14 % (0-9) Eosinophils (%) (Auto) 0 % (0-3) Basophils (%) (Auto) 0 % (0-3) Neutrophils # (Auto) 8.2 x10^3/uL (1.8-7.7) Lymphocytes # (Auto) 0.6 x10^3/uL (1.0-4.8) Monocytes # (Auto) 1.4 x10^3/uL (0.0-1.1) Eosinophils # (Auto) 0.0 x10^3/uL (0.0-0.7) Basophils # (Auto) 0.0 x10^3/uL (0.0-0.2) Sodium Level 142 mmol/L (136-145) Potassium Level 4.3 mmol/L (3.5-5.1) Chloride Level 105 mmol/L (98-107) Carbon Dioxide Level 25 mmol/L (21-32) Anion Gap 12 (6-14) Blood Urea Nitrogen 25 mg/dL (8-26) Creatinine 1.0 mg/dL (0.7-1.3) Estimated GFR (Cockcroft-Gault) 86.3 Glucose Level 123 mg/dL (70-99) Calcium Level 8.8 mg/dL (8.5-10.1) Phosphorus Level 3.7 mg/dL (2.6-4.7) Magnesium Level 2.0 mg/dL (1.8-2.4) Assessment and Plan Assessmemt and Plan Problems Medical Problems: (1) Small bowel obstruction Status: Acute Comment Review of Relevant I have reviewed the following items tu (where applicable) has been applied. Medications: Current Medications Medications (Trade) Dose Ordered Sig/Fede Route PRN Reason Start Time Stop Time Status Last Admin Dose Admin Ondansetron HCl (Zofran) 4 mg PRN Q6HRS PRN IVP NAUSEA/VOMITING 06/01/21 10:15 06/02/21 04:12 Sodium Chloride 1,000 ml @ 100 mls/hr Q10H IV 06/01/21 10:15 06/02/21 10:04 Morphine Sulfate (Morphine Sulfate) 2 mg PRN Q2HR PRN IVP SEVERE PAIN 7-10 06/01/21 10:15 06/02/21 10:14 06/02/21 04:13 Prochlorperazine Edisylate (Compazine) 10 mg PRN Q6HRS PRN IV NAUSEA/VOMITING- 2ND CHOICE 06/01/21 10:15 06/01/21 19:30 Pantoprazole Sodium (PROTONIX VIAL for IV PUSH) 40 mg DAILYAC IVP 06/01/21 13:00 06/02/21 10:04 Iohexol (Omnipaque 300 Mg/ml) 400 ml 1X ONCE PO 06/02/21 07:30 06/02/21 07:34 DC 06/02/21 08:15 Justifications for Admission Other Justification SBO OLIVER APONTE MD Jun 02, 2021 10:14
--- NOTE | 2021-06-02 10:20 | NUR ---
Consult called to Dr. Gupta. Message left with answering service.
--- NOTE | 2021-06-02 10:29 | PDOC ---
SURGICAL PROGRESS NOTE DATE: 06/02/21 TIME: 10:28 Subjective Pt feels better, passing stools Vital Signs Vital Signs Date Time Temp Pulse Resp B/P (MAP) Pulse Ox O2 Delivery O2 Flow Rate FiO2 06/02/21 07:00 97.5 85 18 115/58 (77) 98 Room Air 97.5 I&O Intake and Output 06/02/21 07:00 Output Total 3150 ml Balance -3150 ml Output Urine Total 550 ml Gastric Drainage Total 2400 ml Emesis 200 ml General: Alert, Oriented X3, Cooperative, No acute distress Abdomen: Soft, No tenderness Labs Laboratory Tests Test 05/31/21 17:33 06/02/21 06:55 White Blood Count 11.7 x10^3/uL (4.0-11.0) 10.2 x10^3/uL (4.0-11.0) Red Blood Count 4.22 x10^6/uL (4.30-5.70) 3.92 x10^6/uL (4.30-5.70) Hemoglobin 14.3 g/dL (13.0-17.5) 13.3 g/dL (13.0-17.5) Hematocrit 42.5 % (39.0-53.0) 39.6 % (39.0-53.0) Mean Corpuscular Volume 101 fL (79-100) 101 fL (79-100) Mean Corpuscular Hemoglobin 34 pg (25-35) 34 pg (25-35) Mean Corpuscular Hemoglobin Concent 34 g/dL (31-37) 34 g/dL (31-37) Red Cell Distribution Width 14.9 % (11.5-14.5) 14.9 % (11.5-14.5) Platelet Count 278 x10^3/uL (140-400) 248 x10^3/uL (140-400) Neutrophils (%) (Auto) 95 % (31-73) 81 % (31-73) Lymphocytes (%) (Auto) 3 % (24-48) 6 % (24-48) Monocytes (%) (Auto) 2 % (0-9) 14 % (0-9) Eosinophils (%) (Auto) 0 % (0-3) 0 % (0-3) Basophils (%) (Auto) 0 % (0-3) 0 % (0-3) Neutrophils # (Auto) 11.1 x10^3/uL (1.8-7.7) 8.2 x10^3/uL (1.8-7.7) Lymphocytes # (Auto) 0.3 x10^3/uL (1.0-4.8) 0.6 x10^3/uL (1.0-4.8) Monocytes # (Auto) 0.2 x10^3/uL (0.0-1.1) 1.4 x10^3/uL (0.0-1.1) Eosinophils # (Auto) 0.0 x10^3/uL (0.0-0.7) 0.0 x10^3/uL (0.0-0.7) Basophils # (Auto) 0.0 x10^3/uL (0.0-0.2) 0.0 x10^3/uL (0.0-0.2) Segmented Neutrophils % 91 % (35-66) Band Neutrophils % 3 % (0-9) Lymphocytes % 5 % (24-48) Monocytes % 1 % (0-10) Platelet Estimate Adequate (ADEQUATE) Sodium Level 139 mmol/L (136-145) 142 mmol/L (136-145) Potassium Level 4.5 mmol/L (3.5-5.1) 4.3 mmol/L (3.5-5.1) Chloride Level 102 mmol/L (98-107) 105 mmol/L (98-107) Carbon Dioxide Level 26 mmol/L (21-32) 25 mmol/L (21-32) Anion Gap 11 (6-14) 12 (6-14) Blood Urea Nitrogen 13 mg/dL (8-26) 25 mg/dL (8-26) Creatinine 1.2 mg/dL (0.7-1.3) 1.0 mg/dL (0.7-1.3) Estimated GFR (Cockcroft-Gault) 70.0 86.3 BUN/Creatinine Ratio 11 (6-20) Glucose Level 114 mg/dL (70-99) 123 mg/dL (70-99) Lactic Acid Level 1.6 mmol/L (0.4-2.0) Calcium Level 9.8 mg/dL (8.5-10.1) 8.8 mg/dL (8.5-10.1) Total Bilirubin 0.5 mg/dL (0.2-1.0) Aspartate Amino Transf (AST/SGOT) 19 U/L (15-37) Alanine Aminotransferase (ALT/SGPT) 25 U/L (16-63) Alkaline Phosphatase 85 U/L (46-116) Troponin I High Sensitivity 6 ng/L (4-75) Total Protein 7.9 g/dL (6.4-8.2) Albumin 4.4 g/dL (3.4-5.0) Albumin/Globulin Ratio 1.3 (1.0-1.7) Lipase 185 U/L (73-393) Phosphorus Level 3.7 mg/dL (2.6-4.7) Magnesium Level 2.0 mg/dL (1.8-2.4) Laboratory Tests Test 06/02/21 06:55 White Blood Count 10.2 x10^3/uL (4.0-11.0) Red Blood Count 3.92 x10^6/uL (4.30-5.70) Hemoglobin 13.3 g/dL (13.0-17.5) Hematocrit 39.6 % (39.0-53.0) Mean Corpuscular Volume 101 fL (79-100) Mean Corpuscular Hemoglobin 34 pg (25-35) Mean Corpuscular Hemoglobin Concent 34 g/dL (31-37) Red Cell Distribution Width 14.9 % (11.5-14.5) Platelet Count 248 x10^3/uL (140-400) Neutrophils (%) (Auto) 81 % (31-73) Lymphocytes (%) (Auto) 6 % (24-48) Monocytes (%) (Auto) 14 % (0-9) Eosinophils (%) (Auto) 0 % (0-3) Basophils (%) (Auto) 0 % (0-3) Neutrophils # (Auto) 8.2 x10^3/uL (1.8-7.7) Lymphocytes # (Auto) 0.6 x10^3/uL (1.0-4.8) Monocytes # (Auto) 1.4 x10^3/uL (0.0-1.1) Eosinophils # (Auto) 0.0 x10^3/uL (0.0-0.7) Basophils # (Auto) 0.0 x10^3/uL (0.0-0.2) Sodium Level 142 mmol/L (136-145) Potassium Level 4.3 mmol/L (3.5-5.1) Chloride Level 105 mmol/L (98-107) Carbon Dioxide Level 25 mmol/L (21-32) Anion Gap 12 (6-14) Blood Urea Nitrogen 25 mg/dL (8-26) Creatinine 1.0 mg/dL (0.7-1.3) Estimated GFR (Cockcroft-Gault) 86.3 Glucose Level 123 mg/dL (70-99) Calcium Level 8.8 mg/dL (8.5-10.1) Phosphorus Level 3.7 mg/dL (2.6-4.7) Magnesium Level 2.0 mg/dL (1.8-2.4) Problem List Problems Medical Problems: (1) Small bowel obstruction Status: Acute Assessment/Plan SBFT ongoing will ask GI to comment cont NGT for now. Justicifation of Admission Dx: Justifications for Admission: Justification of Admission Dx: Yes MICHAEL GILES MD Jun 02, 2021 10:28
[2021-06-02 11:00] VITALS: BP 119/65
--- NOTE | 2021-06-02 11:07 | RAD ---
Exam performed: Small bowel follow-through exam. HISTORY: Small bowel obstruction. DATE OF SERVICE: 06/02/2021. COMPARISON: None available FINDINGS: Single x-ray abdomen KUB demonstrates nonspecific bowel gas pattern. There are spondylotic changes in the lumbar spine. Patient was administered 2 cups of Gastrografin via the feeding tube and sequential images of the abd omen are obtained. The jejunum and ileum appear normal in course and mucosal pattern. At 1 hour 40 mi nutes, there is contrast in the colon throughout. Technologist reports that patient passed stool lies during the study. No abnormally dilated bowel loops are identified. IMPRESSION: Essentially unremarkable small bowel follow-through exam. Electronically signed by: Elke Almonte MD (06/02/2021 11:05 AM) [facility]
[2021-06-02] MEDS ORDERED: PHENOL ORAL SPRAY 177ML BOTTLE. PO PRN (12:00)
[2021-06-02] MEDS: POLYVINYL ALCOHOL 1.4% OPHTH SOLUTION 15ML BOTTLE. OU SCH ×3 (13:00→20:43)
--- NOTE | 2021-06-02 14:27 | PDOC2 ---
GI CONSULT Reason For Consult: n/v HPI: HPI: 85 year old male with history of CAD, HTN, HLD, GERD, previous bowel obstruction in September 2020 who presents with worsening abdominal pain that has consistently occurred after eating avocados Patient has had intermittent abdominal pain since his CABG in June 2020. He has had extensive work-up including EGD, colonoscopy (07/01), GI, and surgery consultations. He did appear to have a small bowel obstruction in November of this year of unclear etiology, he is he does not have any history of hernia or previous abdominal surgeries. For the past 2-3 days has had increasing periumbilical pain. Constant. Worse with food intake. Does not radiate. Associated with nausea and an urge to burp constantly. On arrival had an episode of large yellow-colored emesis. No diarrhea, hematochezia, melena. He is normally consitated and takes Linzess 72 mcg No dysuria, urgency, or frequency. CT with 1. 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 There is mild mesenteric edema present. Unremarable SBFT He reports 10 BMs today PMH: PMH: Past Medical/Surgical History: PMH/PSH: Past Medical History: Arthritis, GERD, High Cholesterol, Hypertension, RI, BPH, URINARY RETENTION Past Surgical History: CABG Allergies: Allergies: Coded Allergies: FRANCISCO Inhibitors (Verified Allergy, Intermediate, 05/31/21) clopidogrel (Verified Allergy, Intermediate, Rash, itching, 05/31/21) fenofibrate (Verified Allergy, Intermediate, RASH, 05/31/21) guaifenesin (Verified Allergy, Intermediate, 05/31/21) nabumetone (Verified Allergy, Intermediate, 05/31/21) pravastatin (Verified Allergy, Intermediate, RASH, 05/31/21) ticagrelor (Verified Allergy, Intermediate, 11/26/20) atorvastatin (Verified Adverse Reaction, Intermediate, GI BLEED, 12/09/20) Family History: Family History: Reviewed with no relevant findings Social History: Social History: Smoking Status: Former Smoker Alcohol Use: None Drug Use: None Current Medications: Current Medications Current Medications Morphine Sulfate (Morphine Sulfate) 5 mg 1X ONCE IVP Last administered on 05/31/21at 17:31; Start 05/31/21 at 17:00; Stop 05/31/21 at 17:01; Status DC Ondansetron HCl (Zofran) 4 mg 1X ONCE IVP Last administered on 05/31/21at 17:31; Start 05/31/21 at 17:00; Stop 05/31/21 at 17:01; Status DC Iohexol (Omnipaque 300 Mg/ml) 75 ml 1X ONCE IV Last administered on 05/31/21at 18:04; Start 05/31/21 at 17:45; Stop 05/31/21 at 17:46; Status DC Info (CONTRAST GIVEN -- Rx MONITORING) 1 each PRN DAILY PRN MC SEE COMMENTS; Start 05/31/21 at 17:45; Stop 06/02/21 at 17:44 Sodium Chloride 1,000 ml @ 1,000 mls/hr 1X ONCE IV Last administered on 05/31/21at 18:47; Start 05/31/21 at 18:45; Stop 05/31/21 at 19:44; Status DC Morphine Sulfate (Morphine Sulfate) 2 mg 1X ONCE IVP Last administered on 05/31/21at 18:47; Start 05/31/21 at 18:45; Stop 05/31/21 at 18:46; Status DC Ondansetron HCl (Zofran) 4 mg 1X ONCE IVP Last administered on 05/31/21at 18:47; Start 05/31/21 at 18:45; Stop 05/31/21 at 18:46; Status DC Ondansetron HCl (Zofran) 4 mg PRN Q8HRS PRN IVP NAUSEA/VOMITING Last administered on 06/01/21at 07:21; Start 05/31/21 at 19:00; Stop 06/01/21 at 18:59 Dextrose/Sodium Chloride 1,000 ml @ 75 mls/hr 1X ONCE IV Last administered on 05/31/21at 22:35; Start 05/31/21 at 19:00; Stop 06/01/21 at 08:19; Status DC Morphine Sulfate (Morphine Sulfate) 4 mg PRN Q2HR PRN IVP pain Last administered on 06/01/21at 07:21; Start 05/31/21 at 19:00 Active Scripts Active Senna-Docusate Sodium Tablet (Sennosides/Docusate Sodium) 1 Each Tablet 2 Tab PO BID 5 Days Reported Artificial Tears Drops (Peg 400/Hypromellose/Glycerin) 15 Ml Drops 1 Drop EACHEYE QID 30 Days Latanoprost 0.005% Eye Drop (Latanoprost/Pf) 7.5 Ml Drops 1 Drop OU QHS Avodart (Dutasteride) 0.5 Mg Capsule 1 Cap PO DAILY Flomax (Tamsulosin Hcl) 0.4 Mg Cap.er.24h 1 Cap PO DAILY Diclofenac Sodium 150 Ml Drops 15 Desire TP QID 30 Days Flonase Allergy Relief (Fluticasone Propionate) 9.9 Ml [place].susp 2 Sprays NS PRN BID PRN Simethicone 80 Mg Tab.chew 1 Tab PO TID 6 Days Vitamin D3 (Vitamin D) 125 Mcg Capsule 125 Mcg PO DAILY 5,000 UNITS = 125 MCG Aspirin Ec (Aspirin) 81 Mg Tablet.dr 1 Tab PO DAILY Pantoprazole Sodium (Pantoprazole Sodium) 40 Mg Tablet.dr 40 Mg PO BIDAC Rosuvastatin Calcium 40 Mg Tablet 20 Mg PO DAILY16 Multivitamins (Multivitamin) 1 Each Tablet 1 Tab PO DAILY Toprol Xl (Metoprolol Succinate) 50 Mg Tab.er.24h 50 Mg PO BID FH: Family History: No pertinent hx Social History: Smoke: No ALCOHOL: none Drugs: None ROS: GENERAL: Denies weakness SKIN: No bruising, hair changes or rashes. EYES: No blurred, double or loss of vision. NOSE AND THROAT: No history of nosebleeds, hoarseness or sore throat. HEART: No history of palpitations, chest pain or shortness of breath on exertion. LUNGS: Denies cough, hemoptysis, wheezing or shortness of breath. GASTROINTESTINAL: Denies changes in appetite, nausea, vomiting, diarrhea or constipation. GENITOURINARY: No history of frequency, urgency, hesitancy or nocturia. NEUROLOGIC: Denies history of numbness, tingling, or tremor. PSYCHIATRIC: No history of panic, anxiety or depression. ENDOCRINE: No history of heat or cold intolerance, polyuria or polydipsia. EXTREMITIES: Denies joint pain, pain on walking or stiffness. VItals: Vitals: Vital Signs Date Time Temp Pulse Resp B/P (MAP) Pulse Ox O2 Delivery O2 Flow Rate FiO2 06/02/21 11:00 97.5 90 18 119/65 (83) 97 Room Air 97.5 Labs: Labs: Laboratory Tests Test 06/02/21 06:55 White Blood Count 10.2 x10^3/uL (4.0-11.0) Red Blood Count 3.92 x10^6/uL (4.30-5.70) Hemoglobin 13.3 g/dL (13.0-17.5) Hematocrit 39.6 % (39.0-53.0) Mean Corpuscular Volume 101 fL (79-100) Mean Corpuscular Hemoglobin 34 pg (25-35) Mean Corpuscular Hemoglobin Concent 34 g/dL (31-37) Red Cell Distribution Width 14.9 % (11.5-14.5) Platelet Count 248 x10^3/uL (140-400) Neutrophils (%) (Auto) 81 % (31-73) Lymphocytes (%) (Auto) 6 % (24-48) Monocytes (%) (Auto) 14 % (0-9) Eosinophils (%) (Auto) 0 % (0-3) Basophils (%) (Auto) 0 % (0-3) Neutrophils # (Auto) 8.2 x10^3/uL (1.8-7.7) Lymphocytes # (Auto) 0.6 x10^3/uL (1.0-4.8) Monocytes # (Auto) 1.4 x10^3/uL (0.0-1.1) Eosinophils # (Auto) 0.0 x10^3/uL (0.0-0.7) Basophils # (Auto) 0.0 x10^3/uL (0.0-0.2) Sodium Level 142 mmol/L (136-145) Potassium Level 4.3 mmol/L (3.5-5.1) Chloride Level 105 mmol/L (98-107) Carbon Dioxide Level 25 mmol/L (21-32) Anion Gap 12 (6-14) Blood Urea Nitrogen 25 mg/dL (8-26) Creatinine 1.0 mg/dL (0.7-1.3) Estimated GFR (Cockcroft-Gault) 86.3 Glucose Level 123 mg/dL (70-99) Calcium Level 8.8 mg/dL (8.5-10.1) Phosphorus Level 3.7 mg/dL (2.6-4.7) Magnesium Level 2.0 mg/dL (1.8-2.4) Imaging: Imaging: [facility] [address] [place] [address] IMAGING REPORT Signed PATIENT: GURINDER MAHMOODACCOUNT: [id number] : 1935 LOCATION: ER AGE: 85 SEX: M EXAM STATUS: REG ER ORD. PHYSICIAN: LOLY REYNOLDS MD REASON: abd pain, vomiting, hx sbo PROCEDURE: CT ABD PELV W/ IV CONTRST ONLY CT abdomen and pelvis with contrast PQRS statement: CT scans at this facility use dose reduction including either automated exposure control, iterative reconstructions, and /or weight based radiation dosing via mA and kV modification when appropriate to reduce radiation dose to as low as reasonably achievable. HISTORY: Abdominal pain. Vomiting. Small bowel obstruction. Contrast: 75 mL of opaque 300 intravenous contrast. COMPARISON: CT abdomen and pelvis December 09, 2020 Abdomen findings: Lung bases demonstrate tiny areas of nodularity measuring 3 mm or less in size of the right middle and lower lobe stable to prior exam. Bulky lumbar disc bulges and disc osteophytes with spinal canal and neural foraminal stenoses several levels. Elevation left diaphragm a mild degree stable. Mild hypoplasia of the spleen or atrophy stable. Liver, gallbladder, pancreas and adrenal glands unremarkable. Several bilateral sizable renal cysts stable to prior examination. 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 No closed loop obstruction present to suggest internal hernia or twisting of bowel to suggest volvulus. Mild volume of stool within the colon. Calcified plaque and tortuosity of the aorta and iliac arteries and abdominal arteries, mild ectasia infrarenal aorta diameter 2.4 cm. Pelvis findings: Mild prominence of the prostate. Bladder, rectum and bones are unremarkable. No pelvic fluid. IMPRESSION: 1. 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 There is mild mesenteric edema present. See above. 2. Other stable chronic findings as described above. Electronically signed by: Wally Garibay MD (05/31/2021 6:26 PM) [facility] DICTATED and SIGNED BY: WALLY GARIBAY MD DATE: 05/31/21 [id number] [facility] [address] [place] [address] IMAGING REPORT Signed PATIENT: GURINDER MAHMOODACCOUNT: [id number] : 1935 LOCATION: [address] [place] [address] AGE: 85 SEX: M EXAM STATUS: ADM IN ORD. PHYSICIAN: FRANCK LEON APRN REASON: sbo PROCEDURE: SMALL BOWEL SERIES Exam performed: Small bowel follow-through exam. HISTORY: Small bowel obstruction. DATE OF SERVICE: 06/02/2021. COMPARISON: None available FINDINGS: Single x-ray abdomen KUB demonstrates nonspecific bowel gas pattern. There are spondylotic changes in the lumbar spine. Patient was administered 2 cups of Gastrografin via the feeding tube and sequential images of the abdomen are obtained. The jejunum and ileum appear normal in course and mucosal pattern. At 1 hour 40 minutes, there is contrast in the colon throughout. Technologist reports that patient passed stool lies during the study. No abnormally dilated bowel loops are identified. IMPRESSION: Essentially unremarkable small bowel follow-through exam. Electronically signed by: Elke Almonte MD (06/02/2021 11:05 AM) [facility] and SIGNED BY: ELKE ALMONTE MD DATE: 06/02/21 [id number] PE: GEN: NAD HEENT: Atraumatic, NGT in place and clamped LUNGS: CTAB HEART: RRR, no murmurs ABD: NABS, S/ND/NT, no masses EXTREMITY: No edema SKIN: No rashes, no jaundice NEURO/PSYCH: A & O 3 A/P: A/P: 1) N/V: resolved now. Avoid avocados. Favor start ice chips and advance to liquids. If he tolerates, favor pull NGT and advance diet. Given abnromal imaging, favor CT Enterography as an outpatient. Also consider check HAE panel for hereditary angioedema 2) Constipation: 10 BMs today. Cont Linzess as outpatient 3) SBO-resolved. CT with 2 transition points not seen on SBFT. He likely need an outpatient CT Enterography LEENA HAGEN MD Jun 02, 2021 14:27
[2021-06-02 15:00] VITALS: BP 133/68
[2021-06-02 19:00] VITALS: BP 111/52
[2021-06-02] MEDS: LATANOPROST 0.005% OPHTH SOLUTION 2.5ML BOTTLE. OU SCH (20:36)
[2021-06-02 23:00] VITALS: BP 107/58
[2021-06-03 02:56] VITALS: BP 104/58
[2021-06-03] MEDS: IV NORMAL SALINE 1000ML BAG 1,000 ML IV SCH ×3 (03:21→16:38)
[2021-06-03 07:15] VITALS: BP 102/54
[2021-06-03 07:38] LABS: CALCIUM 8.9 mg/dL (8.5-10.1); GFR 86.3; MAGNESIUM 2.1 mg/dL (1.8-2.4)
[2021-06-03 07:46] LABS: BASO % 0 % (0-3); EOS % 0 % (0-3); HEMATOCRIT 38.3 % (39.0-53.0); HEMOGLOBIN 12.3 g/dL (13.0-17.5); LYMPH # 0.7 x10^3/uL (1.0-4.8); LYMPH % 11 % (24-48); MEAN CORPUSCULAR HEMOGLOBIN 33 pg (25-35); MEAN CORPUSCULAR HGB CONC 32 g/dL (31-37); MEAN CORPUSCULAR VOLUME 103 fL (79-100); MONO # 0.7 x10^3/uL (0.0-1.1); MONO % 11 % (0-9); NEUT # 5.1 x10^3/uL (1.8-7.7); NEUT % 78 % (31-73); PLATELET COUNT 212 x10^3/uL (140-400); RED BLOOD COUNT 3.74 x10^6/uL (4.30-5.70); RED CELL DISTRIBUTION WIDTH 14.6 % (11.5-14.5); WHITE BLOOD COUNT 6.5 x10^3/uL (4.0-11.0)
[2021-06-03] MEDS: PANTOPRAZOLE IV PUSH 40 MG VIAL. IVP SCH (08:01)
[2021-06-03] MEDS: POLYVINYL ALCOHOL 1.4% OPHTH SOLUTION 15ML BOTTLE. OU SCH ×4 (08:03→20:31)
--- NOTE | 2021-06-03 10:42 | NUR ---
SW following. Discussed with RN, pt from home, room air, clear liquid diet. GI following, pt has an NG in place. RN advised no SW needs at this time. SW will continue to follow.
--- NOTE | 2021-06-03 10:58 | PDOC ---
[employer] PROGRESS NOTE Date of Service DOS: DATE: 06/03/21 TIME: 10:56 Chief Complaint Chief Complaint Acute abdominal pain due to small bowel obstruction status post NG tube placement 06/01/2021 Macrocytosis History of CABG History of GERD History of hypertension History of CAD History of dyslipidemia Pending small bowel follow-through Surgery consult for SBO Continue NG tube to [facility]. Serial abdominal exam Pending small bowel follow-through may have to wait until tomorrow because of active vomiting. SCD for DVT prophylaxis Protonix GI prophylaxis ADA diet CODE STATUS full Discussed with RN and SW Disposition inpatient management as above DPOA: Daughter History of Present Illness History of Present Illness 85 year old male with history of CAD, HTN, HLD, GERD, previous bowel obstruction in September 2020 who presents with worsening abdominal pain. Patient has had intermittent abdominal pain since his CABG in June 2020. He has had extensive work-up including EGD, colonoscopy, GI, and surgery consultations. He did appear to have a small bowel obstruction in November of this year of unclear etiology, he is he does not have any history of hernia or pr evious abdominal surgeries. For the past 2-3 days has had increasing periumbilical pain. Constant. Worse with food intake. Does not radiate. Associated with nausea and an urge to burp constantly. On arrival had an episode of large yellow-colored emesis. No diarrhea, hematochezia, melena. No dysuria, urgency, or frequency. 06/02/2021 No acute events overnight. NG tube placed yesterday with 500 cc of gastric fluid contents. Nonbloody and bilious in nature. Pending small bowel follow- through. Patient seen examined bedside and stable. Patient's chart, labs, images were reviewed and discussed with RN 06/03/2021 Small bowel follow-through completed yesterday showing contrast in the colon and patient did have a bowel movement yesterday. Patient feels much better and is able to take in sips without have any nausea or vomiting. Possibly can remove NG tube today advance diet. Will defer this management to surgery. Patient's chart, labs, images were reviewed and discussed with RN Vitals/I&O Vitals/I&O: Vital Signs Date Time Temp Pulse Resp B/P (MAP) Pulse Ox O2 Delivery O2 Flow Rate FiO2 06/03/21 08:00 Room Air 06/03/21 07:15 97.4 81 18 102/54 70 94 97.4 I & O 06/02/21 06/02/21 06/03/21 15:00 23:00 07:00 Intake Total 0 ml 0 ml Balance 0 ml 0 ml Physical Exam General: Alert, Oriented X3, Cooperative, No acute distress Heart: Regular rate, Normal S1, Normal S2 Lungs: Clear Abdomen: Soft, No tenderness, Other (NG tube in place with bilious drainage.) Extremities: No clubbing, No cyanosis Skin: No rashes, No breakdown Labs Labs: Laboratory Tests Test 06/03/21 06:55 White Blood Count 6.5 x10^3/uL (4.0-11.0) Red Blood Count 3.74 x10^6/uL (4.30-5.70) Hemoglobin 12.3 g/dL (13.0-17.5) Hematocrit 38.3 % (39.0-53.0) Mean Corpuscular Volume 103 fL (79-100) Mean Corpuscular Hemoglobin 33 pg (25-35) Mean Corpuscular Hemoglobin Concent 32 g/dL (31-37) Red Cell Distribution Width 14.6 % (11.5-14.5) Platelet Count 212 x10^3/uL (140-400) Neutrophils (%) (Auto) 78 % (31-73) Lymphocytes (%) (Auto) 11 % (24-48) Monocytes (%) (Auto) 11 % (0-9) Eosinophils (%) (Auto) 0 % (0-3) Basophils (%) (Auto) 0 % (0-3) Neutrophils # (Auto) 5.1 x10^3/uL (1.8-7.7) Lymphocytes # (Auto) 0.7 x10^3/uL (1.0-4.8) Monocytes # (Auto) 0.7 x10^3/uL (0.0-1.1) Eosinophils # (Auto) 0.0 x10^3/uL (0.0-0.7) Basophils # (Auto) 0.0 x10^3/uL (0.0-0.2) Sodium Level 144 mmol/L (136-145) Potassium Level 4.0 mmol/L (3.5-5.1) Chloride Level 109 mmol/L (98-107) Carbon Dioxide Level 29 mmol/L (21-32) Anion Gap 6 (6-14) Blood Urea Nitrogen 19 mg/dL (8-26) Creatinine 1.0 mg/dL (0.7-1.3) Estimated GFR (Cockcroft-Gault) 86.3 Glucose Level 89 mg/dL (70-99) Calcium Level 8.9 mg/dL (8.5-10.1) Magnesium Level 2.1 mg/dL (1.8-2.4) Assessment and Plan Assessmemt and Plan Problems Medical Problems: (1) Small bowel obstruction Status: Acute Comment Review of Relevant I have reviewed the following items tu (where applicable) has been applied. Medications: Current Medications Medications (Trade) Dose Ordered Sig/Fede Route PRN Reason Start Time Stop Time Status Last Admin Dose Admin Latanoprost (Xalatan) 1 drop QHS OU 06/02/21 21:00 06/02/21 20:36 Glycerin/ Hypromellose/ Polyethylene (Artificial Tears) 1 drop QID OU 06/02/21 13:00 06/03/21 08:03 Phenol (Chloraseptic) 1 spray PRN Q2HR PRN PO SORE THROAT 06/02/21 12:00 06/02/21 13:26 Justifications for Admission Other Justification SBO OLIVER APONTE MD Jun 03, 2021 10:58
[2021-06-03 11:00] VITALS: BP 117/56
--- NOTE | 2021-06-03 12:47 | PDOC ---
Date of Service: DATE: 06/03/21 TIME: 12:42 Subjective: Subjective: No pain or n/v. Stooling. Tolerating clears. Would really like NGT out. Objective: Vital Signs: Vital Signs Date Time Temp Pulse Resp B/P (MAP) Pulse Ox O2 Delivery O2 Flow Rate FiO2 06/03/21 11:00 97.8 67 18 117/56 (76) 98 Room Air 97.8 Labs: Laboratory Tests Test 06/03/21 06:55 White Blood Count 6.5 x10^3/uL Red Blood Count 3.74 x10^6/uL Hemoglobin 12.3 g/dL Hematocrit 38.3 % Mean Corpuscular Volume 103 fL Mean Corpuscular Hemoglobin 33 pg Mean Corpuscular Hemoglobin Concent 32 g/dL Red Cell Distribution Width 14.6 % Platelet Count 212 x10^3/uL Neutrophils (%) (Auto) 78 % Lymphocytes (%) (Auto) 11 % Monocytes (%) (Auto) 11 % Eosinophils (%) (Auto) 0 % Basophils (%) (Auto) 0 % Neutrophils # (Auto) 5.1 x10^3/uL Lymphocytes # (Auto) 0.7 x10^3/uL Monocytes # (Auto) 0.7 x10^3/uL Eosinophils # (Auto) 0.0 x10^3/uL Basophils # (Auto) 0.0 x10^3/uL Sodium Level 144 mmol/L Potassium Level 4.0 mmol/L Chloride Level 109 mmol/L Carbon Dioxide Level 29 mmol/L Anion Gap 6 Blood Urea Nitrogen 19 mg/dL Creatinine 1.0 mg/dL Estimated GFR (Cockcroft-Gault) 86.3 Glucose Level 89 mg/dL Calcium Level 8.9 mg/dL Magnesium Level 2.1 mg/dL Imaging: SBFT 06/02 IMPRESSION: Essentially unremarkable small bowel follow-through exam. PE: GEN: NAD LUNGS: CTAB HEART: RRR ABD: S/ND/NT NEURO/PSYCH: A & O 3 A/P: SBO - resolved Macrocytosis H/o constipation -- Seems reasonable to remove NGT, advance diet - will defer to surgery. Justicifation of Admission Dx: Justifications for Admission: Justification of Admission Dx: Yes KEVIN MERCADO Jun 03, 2021 12:47
--- NOTE | 2021-06-03 13:03 | PDOC ---
FRANCK LEON CABLEWAY OPERATOR 06/03/21 1303: SURGICAL PROGRESS NOTE DATE: 06/03/21 TIME: 13:02 Subjective feels much better having stools tolerating clears, ng clamped Vital Signs Vital Signs Date Time Temp Pulse Resp B/P (MAP) Pulse Ox O2 Delivery O2 Flow Rate FiO2 06/03/21 11:00 97.8 67 18 117/56 (76) 98 Room Air 97.8 I&O Intake and Output 06/03/21 07:00 Intake Total 0 ml Balance 0 ml Intake Oral 0 ml General: Alert, Oriented X3, Cooperative Abdomen: Soft, No tenderness Labs Laboratory Tests Test 06/02/21 06:55 06/03/21 06:55 White Blood Count 10.2 x10^3/uL (4.0-11.0) 6.5 x10^3/uL (4.0-11.0) Red Blood Count 3.92 x10^6/uL (4.30-5.70) 3.74 x10^6/uL (4.30-5.70) Hemoglobin 13.3 g/dL (13.0-17.5) 12.3 g/dL (13.0-17.5) Hematocrit 39.6 % (39.0-53.0) 38.3 % (39.0-53.0) Mean Corpuscular Volume 101 fL (79-100) 103 fL (79-100) Mean Corpuscular Hemoglobin 34 pg (25-35) 33 pg (25-35) Mean Corpuscular Hemoglobin Concent 34 g/dL (31-37) 32 g/dL (31-37) Red Cell Distribution Width 14.9 % (11.5-14.5) 14.6 % (11.5-14.5) Platelet Count 248 x10^3/uL (140-400) 212 x10^3/uL (140-400) Neutrophils (%) (Auto) 81 % (31-73) 78 % (31-73) Lymphocytes (%) (Auto) 6 % (24-48) 11 % (24-48) Monocytes (%) (Auto) 14 % (0-9) 11 % (0-9) Eosinophils (%) (Auto) 0 % (0-3) 0 % (0-3) Basophils (%) (Auto) 0 % (0-3) 0 % (0-3) Neutrophils # (Auto) 8.2 x10^3/uL (1.8-7.7) 5.1 x10^3/uL (1.8-7.7) Lymphocytes # (Auto) 0.6 x10^3/uL (1.0-4.8) 0.7 x10^3/uL (1.0-4.8) Monocytes # (Auto) 1.4 x10^3/uL (0.0-1.1) 0.7 x10^3/uL (0.0-1.1) Eosinophils # (Auto) 0.0 x10^3/uL (0.0-0.7) 0.0 x10^3/uL (0.0-0.7) Basophils # (Auto) 0.0 x10^3/uL (0.0-0.2) 0.0 x10^3/uL (0.0-0.2) Sodium Level 142 mmol/L (136-145) 144 mmol/L (136-145) Potassium Level 4.3 mmol/L (3.5-5.1) 4.0 mmol/L (3.5-5.1) Chloride Level 105 mmol/L (98-107) 109 mmol/L (98-107) Carbon Dioxide Level 25 mmol/L (21-32) 29 mmol/L (21-32) Anion Gap 12 (6-14) 6 (6-14) Blood Urea Nitrogen 25 mg/dL (8-26) 19 mg/dL (8-26) Creatinine 1.0 mg/dL (0.7-1.3) 1.0 mg/dL (0.7-1.3) Estimated GFR (Cockcroft-Gault) 86.3 86.3 Glucose Level 123 mg/dL (70-99) 89 mg/dL (70-99) Calcium Level 8.8 mg/dL (8.5-10.1) 8.9 mg/dL (8.5-10.1) Phosphorus Level 3.7 mg/dL (2.6-4.7) Magnesium Level 2.0 mg/dL (1.8-2.4) 2.1 mg/dL (1.8-2.4) Laboratory Tests Test 06/03/21 06:55 White Blood Count 6.5 x10^3/uL (4.0-11.0) Red Blood Count 3.74 x10^6/uL (4.30-5.70) Hemoglobin 12.3 g/dL (13.0-17.5) Hematocrit 38.3 % (39.0-53.0) Mean Corpuscular Volume 103 fL (79-100) Mean Corpuscular Hemoglobin 33 pg (25-35) Mean Corpuscular Hemoglobin Concent 32 g/dL (31-37) Red Cell Distribution Width 14.6 % (11.5-14.5) Platelet Count 212 x10^3/uL (140-400) Neutrophils (%) (Auto) 78 % (31-73) Lymphocytes (%) (Auto) 11 % (24-48) Monocytes (%) (Auto) 11 % (0-9) Eosinophils (%) (Auto) 0 % (0-3) Basophils (%) (Auto) 0 % (0-3) Neutrophils # (Auto) 5.1 x10^3/uL (1.8-7.7) Lymphocytes # (Auto) 0.7 x10^3/uL (1.0-4.8) Monocytes # (Auto) 0.7 x10^3/uL (0.0-1.1) Eosinophils # (Auto) 0.0 x10^3/uL (0.0-0.7) Basophils # (Auto) 0.0 x10^3/uL (0.0-0.2) Sodium Level 144 mmol/L (136-145) Potassium Level 4.0 mmol/L (3.5-5.1) Chloride Level 109 mmol/L (98-107) Carbon Dioxide Level 29 mmol/L (21-32) Anion Gap 6 (6-14) Blood Urea Nitrogen 19 mg/dL (8-26) Creatinine 1.0 mg/dL (0.7-1.3) Estimated GFR (Cockcroft-Gault) 86.3 Glucose Level 89 mg/dL (70-99) Calcium Level 8.9 mg/dL (8.5-10.1) Magnesium Level 2.1 mg/dL (1.8-2.4) Problem List Problems Medical Problems: (1) Small bowel obstruction Status: Acute Assessment/Plan ok to dc ng, advance diet, outpt fu with GI Justicifation of Admission Dx: Justifications for Admission: Justification of Admission Dx: Yes MICHAEL GILES MD 06/03/21 1528: SURGICAL PROGRESS NOTE Assessment/Plan Pt seen and examined. Agree with ms. Leon's note Pt feels better, NGT out abd soft OK to d/c, f/u with GI FRANCK LEON APRN Jun 03, 2021 13:03 MICHAEL GILES MD Jun 03, 2021 15:28
[2021-06-03 15:00] VITALS: BP 110/53
[2021-06-03 19:00] VITALS: BP 121/52
[2021-06-03] MEDS: LATANOPROST 0.005% OPHTH SOLUTION 2.5ML BOTTLE. OU SCH (20:30)
[2021-06-03] MEDS: CETIRIZINE HCL 10 MG TABLET. PO SCH (21:23)
[2021-06-03 23:00] VITALS: BP 116/44
[2021-06-04] MEDS: IV NORMAL SALINE 1000ML BAG 1,000 ML IV SCH ×2 (02:20→08:15)
[2021-06-04 03:10] VITALS: BP 112/52
[2021-06-04 05:03] LABS: CALCIUM 8.2 mg/dL (8.5-10.1); CREATININE 0.7 mg/dL (0.7-1.3); GFR 130.3; MAGNESIUM 1.7 mg/dL (1.8-2.4); POTASSIUM 3.4 mmol/L (3.5-5.1)
[2021-06-04 05:28] LABS: BASO % 0 % (0-3); EOS % 0 % (0-3); HEMOGLOBIN 11.1 g/dL (13.0-17.5); LYMPH # 0.9 x10^3/uL (1.0-4.8); LYMPH % 14 % (24-48); MEAN CORPUSCULAR HEMOGLOBIN 33 pg (25-35); MEAN CORPUSCULAR HGB CONC 33 g/dL (31-37); MEAN CORPUSCULAR VOLUME 102 fL (79-100); MONO # 0.7 x10^3/uL (0.0-1.1); MONO % 11 % (0-9); NEUT # 5.1 x10^3/uL (1.8-7.7); NEUT % 75 % (31-73); PLATELET COUNT 197 x10^3/uL (140-400); RED BLOOD COUNT 3.34 x10^6/uL (4.30-5.70); RED CELL DISTRIBUTION WIDTH 14.2 % (11.5-14.5); WHITE BLOOD COUNT 6.7 x10^3/uL (4.0-11.0)
[2021-06-04 07:00] VITALS: BP 113/49
[2021-06-04] MEDS: PANTOPRAZOLE IV PUSH 40 MG VIAL. IVP SCH (08:17)
[2021-06-04] MEDS: POLYVINYL ALCOHOL 1.4% OPHTH SOLUTION 15ML BOTTLE. OU SCH (08:17)
[2021-06-04] MEDS: CETIRIZINE HCL 10 MG TABLET. PO SCH (08:17)
--- NOTE | 2021-06-04 08:48 | DISCH ---
DISCHARGE INSTRUCTIONS Condition on Discharge Condition on Discharge: Stable Activity After Discharge Activity Instructions for Disc: Resume previous activity Lifting Instructions after Dis: Do not lift >10 pounds Exercise Instruction after Dis: Walk 15 min, 3 x per day Driving Instructions after Dis: Do not drive today Weight Bearing Status after Di: As tolerated Diet after Discharge Diet after Discharge: GI Soft Liquid Texture: Thin Liquid Checks after Discharge Checks after discharge: Check blood press - daily Contacting the DR. after DC Call your doctor for: If your condition worsens Follow-Up Follow up with: PCP within 2 weeks of discharge Follow Up With: Gastroenterology as scheduled or as needed OLIVER APONTE MD Jun 04, 2021 08:48
--- NOTE | 2021-06-04 10:18 | NUR ---
SW following. Discussed with RN, discharge order for home with self care. RN advised no SW needs.
--- NOTE | 2021-06-04 10:26 | PDOC ---
Date of Service: DATE: 06/04/21 TIME: 10: Subjective: Subjective: Tolerating diet, no abdominal pain, stooled last night. Anxious to go home, was told I was the one to dismiss him. Objective: Objective: Reviewed consult note - h/o constipation on LInzess, had EGD and colonoscopy 06/2020. Vital Signs: Vital Signs Date Time Temp Pulse Resp B/P (MAP) Pulse Ox O2 Delivery O2 Flow Rate FiO2 06/04/21 07:49 Room Air 06/04/21 07:00 97.7 67 16 113/49 (70) 98 97.7 Labs: Laboratory Tests Test 06/04/21 04:25 White Blood Count 6.7 x10^3/uL Red Blood Count 3.34 x10^6/uL Hemoglobin 11.1 g/dL Hematocrit 34.0 % Mean Corpuscular Volume 102 fL Mean Corpuscular Hemoglobin 33 pg Mean Corpuscular Hemoglobin Concent 33 g/dL Red Cell Distribution Width 14.2 % Platelet Count 197 x10^3/uL Neutrophils (%) (Auto) 75 % Lymphocytes (%) (Auto) 14 % Monocytes (%) (Auto) 11 % Eosinophils (%) (Auto) 0 % Basophils (%) (Auto) 0 % Neutrophils # (Auto) 5.1 x10^3/uL Lymphocytes # (Auto) 0.9 x10^3/uL Monocytes # (Auto) 0.7 x10^3/uL Eosinophils # (Auto) 0.0 x10^3/uL Basophils # (Auto) 0.0 x10^3/uL Sodium Level 144 mmol/L Potassium Level 3.4 mmol/L Chloride Level 109 mmol/L Carbon Dioxide Level 26 mmol/L Anion Gap 9 Blood Urea Nitrogen 8 mg/dL Creatinine 0.7 mg/dL Estimated GFR (Cockcroft-Gault) 130.3 Glucose Level 83 mg/dL Calcium Level 8.2 mg/dL Magnesium Level 1.7 mg/dL PE: GEN: NAD LUNGS: CTAB HEART: RRR ABD: S/ND/NT NEURO/PSYCH: A & O 3 A/P: SBO - resolved Macrocytosis, normal B12 H/o constipation -- DC per primary/surgery. Dr. Gupta saw over the weekend - consideration for outpt CT enterography - will d/w Dr. Donahue, our office can contact to schedule. Justicifation of Admission Dx: Justifications for Admission: Justification of Admission Dx: Yes KEVIN MERCADO Jun 04, 2021 10:26
[2021-06-04 11:00] VITALS: BP 133/63
--- NOTE | 2021-06-04 11:19 | NUR ---
Pt discharged home with self care. Discharge instructions discussed. IV removed. Pt packed belongings on his own. Assisted to wheelchair and was secured in car with sister.
[2021-06-05] MEDS ORDERED: PANTOPRAZOLE 40 MG TABLET.DR. PO SCH (07:30)
--- NOTE | 2021-06-09 15:36 | PDOC3 ---
[facility]-Discharge Summary Date of Admission: Date of Admission: May 31, 2021 Date of Discharge: Date of Discharge: Jun 04, 2021 Discharge Diagnosis: Discharge Diagnosis: Acute abdominal pain due to small bowel obstruction status post NG tube placement 06/01/2021 Macrocytosis History of CABG History of GERD History of hypertension History of CAD History of dyslipidemia Hospital Course: Hospital Course: 85 year old male with history of CAD, HTN, HLD, GERD, previous bowel obstruction in September 2020 who presents with worsening abdominal pain. Patient has had intermittent abdominal pain since his CABG in June 2020. He has had extensive work-up including EGD, colonoscopy, GI, and surgery consultations. He did appear to have a small bowel obstruction in November of this year of unclear etiology, he is he does not have any history of hernia or previous abdominal surgeries. For the past 2-3 days has had increasing periumbilical pain. Constant. Worse with food intake. Does not radiate. Associated with nausea and an urge to burp constantly. On arrival had an episode of large yellow-colored emesis. No diarrhea, hematochezia, melena. No dysuria, urgency, or frequency. 06/02/2021 No acute events overnight. NG tube placed yesterday with 500 cc of gastric fluid contents. Nonbloody and bilious in nature. Pending small bowel follow- through. Patient seen examined bedside and stable. Patient's chart, labs, images were reviewed and discussed with RN 06/03/2021 Small bowel follow-through completed yesterday showing contrast in the colon and patient did have a bowel movement yesterday. Patient feels much better and is able to take in sips without have any nausea or vomiting. Possibly can remove NG tube today advance diet. Will defer this management to surgery. Patient's chart, labs, images were reviewed and discussed with RN By day of discharge, pt was clinically stable and ready for discharge. Rest of hospital course was uneventful Disposition: Disposition/Orders: D/C to Home Activity: Activity: Resume previous activity Diet: Diet: Soft Medications: Home Meds Active Scripts Sennosides/Docusate Sodium (Senna-Docusate Sodium Tablet) 1 Each Tablet, 2 TAB PO BID for constipation for 5 Days, #20 TAB 0 Refills Prov:OLIVER APONTE MD 12/13/20 Reported Medications Peg 400/Hypromellose/Glycerin (ARTIFICIAL TEARS DROPS) 15 Ml Drops, 1 DROP EACHEYE QID for dry eye for 30 Days, ML 0 Refills 12/10/20 Latanoprost/Pf (Latanoprost 0.005% Eye Drop) 7.5 Ml Drops, 1 DROP OU QHS for GLAUCOMA, DROP 12/10/20 Dutasteride (AVODART) 0.5 Mg Capsule, 1 CAP PO DAILY for bph, #30 CAP 5 Refills 12/10/20 Tamsulosin Hcl (FLOMAX) 0.4 Mg Cap.er.24h, 1 CAP PO DAILY for bph, #30 CAP 11 Refills 12/10/20 Diclofenac Sodium (Diclofenac Sodium) 150 Ml Drops, 15 MEENA TP QID for arthritis for 30 Days, #150 ML 0 Refills 12/10/20 Fluticasone Propionate (Flonase Allergy Relief) 9.9 Ml [place].susp, 2 SPRAYS NS PRN BID PRN for ALLERGIES, ML 12/10/20 Simethicone (SIMETHICONE) 80 Mg Tab.chew, 1 TAB PO TID for gas for 6 Days, #20 TAB 0 Refills 12/10/20 Cholecalciferol (Vitamin D3) (Vitamin D3 ) 125 Mcg Capsule, 125 MCG PO DA [place] for SUPPLEMENT, CAP 5,000 UNITS = 125 MCG 12/10/20 Aspirin (ASPIRIN EC) 81 Mg Tablet.dr, 1 TAB PO DAILY for heart, #30 TAB 3 Refills 12/10/20 Pantoprazole Sodium (PANTOPRAZOLE SODIUM ) 40 Mg Tablet.dr, 40 MG PO BIDAC for GERD, TAB 12/10/20 Rosuvastatin Calcium (Rosuvastatin Calcium) 40 Mg Tablet, 20 MG PO DAILY16 for cholesterol, TAB 12/10/20 Multivitamin (MULTIVITAMINS) 1 Each Tablet, 1 TAB PO DAILY, #90 TAB 3 Refills 04/30/17 Metoprolol Succinate (TOPROL XL) 50 Mg Tab.er.24h, 50 MG PO BID 08/21/13 Scheduled Aspirin (Aspirin Ec), 1 TAB PO DAILY, (Reported) Cholecalciferol (Vitamin D3) (Vitamin D3 ), 125 MCG PO DAILY, (Reported) Diclofenac Sodium (Diclofenac Sodium), 15 MEENA TP QID, (Reported) Dutasteride (Avodart), 1 CAP PO DAILY, (Reported) Latanoprost/Pf (Latanoprost 0.005% Eye Drop), 1 DROP OU QHS, (Reported) Metoprolol Succinate (Toprol Xl), 50 MG PO BID, (Reported) Multivitamin (Multivitamins), 1 TAB PO DAILY, (Reported) Pantoprazole Sodium (Pantoprazole Sodium ), 40 MG PO BIDAC, (Reported) Peg 400/Hypromellose/Glycerin (Artificial Tears Drops), 1 DROP EACHEYE QID, (Reported) Rosuvastatin Calcium (Rosuvastatin Calcium), 20 MG PO DAILY16, (Reported) Sennosides/Docusate Sodium (Senna-Docusate Sodium Tablet), 2 TAB PO BID Simethicone (Simethicone), 1 TAB PO TID, (Reported) Tamsulosin Hcl (Flomax), 1 CAP PO DAILY, (Reported) Scheduled PRN Fluticasone Propionate (Flonase Allergy Relief), 2 SPRAYS NS PRN BID PRN for ALLERGIES, (Reported) Total Time: Total Time: Total time spent was 32 minutes in preparing scripts, discharge planning with SW and RN, and preparing this discharge summary. Justicifation of Admission Dx: Justifications for Admission: Justification of Admission Dx: Yes OLIVER APONTE MD Jun 09, 2021 15:36
== END 2021-06-04 11:21 | disposition home or self-care (01) | DRG 390 ==
LOC: ER 16:37 → 4 NORTH 18:34
PROVIDERS: ADMIT Internal Medicine; ATTEND Internal Medicine
DX: K56.609 Unspecified intestinal obstruction, unspecified as to partial versus complete obstruction (principal); D75.89 Other specified diseases of blood and blood-forming organs; E78.00 Pure hypercholesterolemia, unspecified; E78.5 Hyperlipidemia, unspecified; I10 Essential (primary) hypertension; I25.10 Atherosclerotic heart disease of native coronary artery without angina pectoris; N40.1 Benign prostatic hyperplasia with lower urinary tract symptoms; Z87.891 Personal history of nicotine dependence; Z95.1 Presence of aortocoronary bypass graft; Z95.5 Presence of coronary angioplasty implant and graft; K21.9 Gastro-esophageal reflux disease without esophagitis; M19.90 Unspecified osteoarthritis, unspecified site; Z88.8 Allergy status to other drugs, medicaments and biological substances
CPT/HCPCS: 36415; 74018; 74177; 74250; 80048; 80053; 82607; 83605; 83690; 83735; 84100; 84484; 85007; 85025; 86160; 96361; 96374; 96375; 96376; C9113; J0780; J2270; J2405; J7030; J7042; Q9967; 99285-25; G0378